=== PATIENT | female | born 1935 | race Caucasian/White ===

== ENCOUNTER 2016-02-07 21:35 | Inpatient (IN) | payer MEDICARE ==
[~2016-02-07] VITALS: Ht 167.6 cm; Wt 57.5 kg
[~2016-02-07 21:35] MED LIST: BAYER CHEWABLE81 MG PO; CATAPRES0.1 MG PO; CELEXA10 MG PO; CHLORTHALIDONE25 MG PO; COREG6.25 MG PO; FUROSEMIDE40 MG PO; LASIX20 MG PO; LIPITOR10 MG PO; LISINOPRIL10 MG PO; LOPRESSOR25 MG PO; METOPROLOL TART50 MG PO; NORVASC10 MG PO; NORVASC5 MG PO; OCUFLOX 0.3 % OP5 ML RIGHT EYE; PEPCID AC20 MG PO; PHOSLO667 MG PO; PLAVIX75 MG PO; PREDNISONE20 MG PO; PREDNISONE5 MG PO; PROTONIX40 MG PO; REFLUX MEDICATION PO; REQUIP0.25 MG PO; RESTORIL15 MG; TOPROL XL25 MG PO; VITAMIN D2000 UNIT PO; VITAMIN D5000 UNIT PO; XANAX0.25 MG PO; ZESTRIL10 MG PO; [UNRECOGNIZED DRUG - OTHER]
[2016-02-07 22:16] LABS: UDS - AMPHET NEGATIVE QUAL (NEGATIVE); UDS - BARB NEGATIVE QUAL (NEGATIVE); UDS - BENZO POSITIVE QUAL (NEGATIVE); UDS - COCAINE NEGATIVE QUAL (NEGATIVE); UDS - METH NEGATIVE QUAL (NEGATIVE); UDS - OPIATE NEGATIVE QUAL (NEGATIVE); UDS - PCP NEGATIVE QUAL (NEGATIVE); UDS - THC NEGATIVE QUAL (NEGATIVE)
[2016-02-07 22:18] LABS: APPEARANCE CLEAR (CLEAR); BILIRUBIN NEGATIVE (NEGATIVE); COLOR YELLOW (YELLOW); GLUCOSE 100 mg/dL (NEGATIVE); KETONE NEGATIVE (NEGATIVE); LEUKOCYTE ESTERASE NEGATIVE (NEGATIVE); NITRITE NEGATIVE (NEGATIVE); PROTEIN 3+ mg/dL (NEGATIVE); UROBILINOGEN NORMAL (NORMAL)
[2016-02-07 22:20] LABS: BACTERIA FEW /hpf (NONE SEEN); EPITHELIAL CELLS 0-5 /hpf (0-5); RED CELLS - URINE 0-5 /hpf (0-5); WHITE CELLS - URINE 0-5 /hpf (0-5)
[2016-02-07 22:36] LABS: BASOPHILS 0 % (0.0-2.0); EOSINOPHILS 0 % (0-7); HEMATOCRIT 40.4 % (36.0-48.0); HEMOGLOBIN 13.2 g/dL (12-16); IMMATURE GRANULOCYTES 0.2 % (0-5); LYMPHOCYTES 5.2 % (15-50); MCH 33.2 pg (26.0-34.0); MCHC 32.7 g/dL (31.0-37.0); MCV 101.8 fL (80.0-100.0); MEAN PLATELET VOLUME 9.8 fL (7.4-10.4); MONOCYTES 6.5 % (2-11); NEUTROPHILS 88.1 % (40-80); PLATELET COUNT 419 10x3/uL (130-400); RBC 3.97 10x6/uL (4.00-5.40); RDW 14.5 % (11.5-14.5); WBC 20.6 10x3/uL (4.8-10.8)
[2016-02-07 22:39] LABS: ALBUMIN 3.6 g/dL (3.4-5.0); ALKALINE PHOSPHATASE 83 U/L (46-116); ALT (SGPT) 25 U/L (10-68); BILIRUBIN - TOTAL 0.47 mg/dL (0.2-1.3); CALC OSMOLALITY 303 mosm/kg (275-300); CALCIUM 9.5 mg/dL (8.5-10.1); CHLORIDE - SERUM 102 mmol/L (98-107); CREATININE - SERUM 5.9 mg/dL (0.6-1.3); GLUCOSE 249 mg/dL (74-106); POTASSIUM - SERUM 4.4 mmol/L (3.5-5.1); PROTEIN - SERUM 7.7 g/dL (6.4-8.2); SODIUM 142 mmol/L (136-145); UREA NITROGEN 49 mg/dL (7-18); eGFR NON AFRICAN AMERICAN 7 mL/min (90-120)
[2016-02-07 22:56] LABS: CKMB 15.8 U/L (0.0-3.6)
[2016-02-07 22:57] LABS: CREATINE KINASE 827 UL (21-215)
[2016-02-07 22:58] LABS: TROPONIN-I 0.462 ng/mL (0.000-0.060)
[2016-02-08] VITALS (23 sets, daily range): BP systolic 130–191; BP diastolic 51–98; BMI 21.3
--- NOTE | 2016-02-08 02:10 | NUR ---
PT ARRIVED VIA BED AND ER STAFF. UNRESPONSIVE, UNABLE TO FOLLOW COMMANDS, AND ONLY ABLE TO MAKE INCOMPREHENSIBLE SOUNDS. OPENS EYES SPONTANEOUSLY. FACIAL SWELLING PRESENT. BRUISING TO LEFT ARM AND LEFT BACK/SIDE. SPO2 98 ON ROOM AIR. NSR ON MONITOR. CARTER INTACT. LEFT ARM FISTULA WITH BRUIT AND THRILL PRESENT. PT GIVEN PARTIAL BATH AND LINEN CHANGE. BED ALARM ON. ROOM VISIBLE FROM NURSES STATION. CPOC.
[2016-02-08] MEDS ORDERED: LASIX80 MG PO (02:14)
[2016-02-08] MEDS ORDERED: REQUIP0.25 MG PO (02:14)
[2016-02-08] MEDS ORDERED: ZOFRAN4 MG PO (02:15)
[2016-02-08] MEDS ORDERED: RENA-VITE TABL0.8 MG PO (02:15)
[2016-02-08] MEDS ORDERED: RESTORIL15 MG PO (02:16)
[2016-02-08] MEDS ORDERED: CELEXA10 MG PO (02:16)
[2016-02-08] MEDS ORDERED: XANAX0.25 MG PO (02:17)
[2016-02-08] MEDS ORDERED: PRINIVIL20 MG PO (02:17)
[2016-02-08] MEDS ORDERED: BACLOFEN20 M1 PO (02:17)
[2016-02-08 04:20] LABS: BASOPHILS 0.1 % (0.0-2.0); EOSINOPHILS 0 % (0-7); HEMATOCRIT 37.8 % (36.0-48.0); HEMOGLOBIN 12.5 g/dL (12-16); IMMATURE GRANULOCYTES 0.9 % (0-5); LYMPHOCYTES 4.4 % (15-50); MCH 33.1 pg (26.0-34.0); MCHC 33.1 g/dL (31.0-37.0); MEAN PLATELET VOLUME 10.8 fL (7.4-10.4); MONOCYTES 8.2 % (2-11); NEUTROPHILS 86.4 % (40-80); PLATELET COUNT 291 10x3/uL (130-400); RBC 3.78 10x6/uL (4.00-5.40); RDW 14.6 % (11.5-14.5)
[2016-02-08 04:29] LABS: ALBUMIN 3.3 g/dL (3.4-5.0); ANION GAP 19.8 mmol/L (8-16); BILIRUBIN - TOTAL 0.59 mg/dL (0.2-1.3); CALCIUM 9.2 mg/dL (8.5-10.1); CARBON DIOXIDE 22.1 mmol/L (21.0-32.0); CREATININE - SERUM 5.4 mg/dL (0.6-1.3); POTASSIUM - SERUM 4.9 mmol/L (3.5-5.1); PROTEIN - SERUM 6.6 g/dL (6.4-8.2)
--- NOTE | 2016-02-08 09:28 | NUR ---
PATIENT EYES WIDE OPEN, FEARFUL LOOK ON FACE. RESP DEEP AND REGULAR DOES GASP FOR BREATH AT TIMES. SKIN WARM AND DRY. DOSE NOT MAKE EYE CONTACT, DOES NOT OBEY COMMANDS. JERKING KIND OF MOVEMENT WITH MUSCLE TIGHTNESS IN EXTREMITITES. MOANS LOUDLY AT TIMES. RIGHT HAND IN FIST BEND LEFT LEG AND SEEMS TO MOVE LEFT SIDE MORE THAN RIGHT. DOES RESPOND TO PAIN IN ALL EXTREMITITES. IV RIGHT FOREARM WITHOUT REDNESS OR SWELLING INFUSING WITH D5LR AT 50 ML HOUR. CARTER PATENT DRAINING CLEAR YELLOW URINE. MONITOR SINUS RHYTHM. CAN TURN TO ST WHEN MOANING.NAPPING AT INTERVALS. SCD ON LOWER LEGS WORKING PROPERLY. FACE SWOLLEN AND LOWER EXTREMITIES EDEMA NOTED. BHASKAR larsen HERE. STATES NEW MEDS bACLOFEN STARTED THIS WEEK FOR TREMORS. LUNGS CLEAR BILATERLLY, ABD SOFT WITH BOWEL SOUNDS PRESENT X 4.
--- NOTE | 2016-02-08 09:45 | NUR ---
lABETALOL iv GIVEN FOR ELEVATED BLOOD PRESSURE. WHEN MOANING AND RESTLESS BLOOD PRESSURE UP TO 190'S.
[2016-02-08 09:51] LABS: HEMOGLOBIN A1C 5.6 % (4.8-6.0)
[2016-02-08 10:19] LABS: T4 THYROXIN - FREE 1.13 ng/dL (0.76-1.46); THYROID STIMULATING HORMONE 3.24 uIU/mL (0.36-3.74)
[2016-02-08 10:24] LABS: CKMB 19.6 U/L (0.0-3.6); CREATINE KINASE 997 UL (21-215); TROPONIN-I 2.048 ng/mL (0.000-0.060)
--- NOTE | 2016-02-08 11:40 | NUR ---
patient repositioned on left side. jerking of right shoulder. good cough while jerking eyes wide open but does make eye contact. no jerking in extremities. but extremities stiff at times. likes to keep left leg bent. does obey any commands. does rebend left leg when straighten out. when left alone jerking is much less. iv patent. morales draining pale yellow clear urine.
--- NOTE | 2016-02-08 14:12 | NUR ---
PATIENT WITH CONTINOUS JERKING AND MOANING CALLED Baylee larsen CALL hEIPLE ORDERS RECEIVED FOR A nEURO CONSULT. DR. BANUELOS NOTIFIED OF CONSULT
--- NOTE | 2016-02-08 15:55 | NUR ---
VERY RESTLESS, KICKING LEGS IN THE AIR, THRASHING BACK AND FORTH IN BED. DR. TORRE IS HERE. EMOTIONAL SUPPORT TO SONS. PILLOWS PLACED TO PAD SIDE RAILS IV AND CARTER CATH PATENT.
--- NOTE | 2016-02-08 18:45 | NUR ---
nG INSERTED AFTER CXR DONE WAS IN LUNG, REMOVED AND REINSERTED IN LEFT NARES PER Cameron Hernandez. CHEST X-RAY DONE CONFIRMED IN STOMACH. KLONOPIN GIVEN. MED EFFECTIVE. PATIENTIS RESTING QUIETLY AT THIS TIME. RESP DEEP AND REGULAR NO DISTRESS. NO RESTLESS NESS OR JERKING MOTION NOTED. ATTEMPTED 2ND IV FOR IV ANTIBIOTICS X 2 STICKS UNSUCCESSFUL.
--- NOTE | 2016-02-08 18:57 | NUR ---
Kimberly PATIENT SON NOTIFIED OF ng TUBE INSERTION AND EFFECTIVENESS OF kLONOPIN. INFORMED WAS RESTING WELL RIGHT NOW.
--- NOTE | 2016-02-08 19:28 | NUR ---
REPORT RECIEVED. ASSESSMENT COMPLETE PER FLOW SHEET. PT AWAKE DISORIENTED X4 DOES NOT RESPOND TO VERBAL CUES OR RETRACTS TO PAINFUL STIMULI, R PUPIL 4MM FIXED, L PUPIL 4MM BRISK. L ARM RESERVE R SUBCLAVIAN HEMOSPLIT NOTED DRSG CDI, R FOREARM PIV PATENT DRSG CDI, NON PURPOSEFUL MOVEMENT NOTED X4 EXTREMETIES. HEART S1S2 HR 98 NSR. BS HYPO ACTIVE X4. NGT TO R NARE PATENT TO LIS. RR 28 LABRED TO RA 99% RUL RML ARUN CLEAR BILAT LOWER LOBES DEMINISHED. BILAT SCDS ON NO SLIP SOCKS ON BED ALARM ON VSS WILL CONTINUE TO MONITOR.
--- NOTE | 2016-02-08 21:03 | NUR ---
LAB AT BEDSIDE, REPOSITIONED UP IN BED. NO NEW FINDINGS. NO VISITORS AT THIS TIME. [facility].
[2016-02-08 22:13] LABS: CKMB 25.3 U/L (0.0-3.6)
[2016-02-08 22:14] LABS: CREATINE KINASE 2074 UL (21-215); TROPONIN-I 3.112 ng/mL (0.000-0.060)
--- NOTE | 2016-02-08 23:28 | NUR ---
REASSESSMENT COMPLETE PER FLOW SHEET. VSS NO NEW CHANGES AT THIS TIME. WILL CONTINUE TO MONITOR.
[2016-02-09] VITALS (26 sets, daily range): BP systolic 80–182; BP diastolic 49–101; Ht 167.6 cm; Wt 57.5 kg
--- NOTE | 2016-02-09 01:33 | NUR ---
REPOSITIONED UP IN BED. PT SLEEPING AT THIS TIME. VSS. WILL CONTINUE TO MONITOR.
--- NOTE | 2016-02-09 02:16 | NUR ---
PT LEGS OOB REPOSITIONED BACK IN BED, PT NOW AWAKE NON PURPOSEFUL MOVEMENTS NOTED. WILL CONTINUE TO MONITOR.
--- NOTE | 2016-02-09 03:14 | NUR ---
REASSESSMENT COMPLETE PER FLOW SHEET. VSS. NO NEW CHANGES AT THIS TIME. WILL CONTINUE TO MONITOR.
--- NOTE | 2016-02-09 05:20 | NUR ---
PARTIAL LINEN CHANGE AND BB ADM. NO NEW CHANGES.
[2016-02-09 05:58] LABS: BILIRUBIN - TOTAL 0.64 mg/dL (0.2-1.3); CALCIUM 9.8 mg/dL (8.5-10.1); CARBON DIOXIDE 19.4 mmol/L (21.0-32.0); GENTAMICIN - TROUGH 9.9 ug/mL (0.5-2.0); POTASSIUM - SERUM 5.4 mmol/L (3.5-5.1); PROTEIN - SERUM 6.4 g/dL (6.4-8.2); VANCOMYCIN - TROUGH 21.6 ug/mL (10.0-20.0)
[2016-02-09 06:17] LABS: BASOPHILS 0.1 % (0.0-2.0); EOSINOPHILS 0 % (0-7); HEMATOCRIT 33.6 % (36.0-48.0); HEMOGLOBIN 10.8 g/dL (12-16); IMMATURE GRANULOCYTES 0.4 % (0-5); MCH 32.5 pg (26.0-34.0); MCHC 32.1 g/dL (31.0-37.0); MCV 101.2 fL (80.0-100.0); MEAN PLATELET VOLUME 10.3 fL (7.4-10.4); MONOCYTES 14.4 % (2-11); NEUTROPHILS 76.1 % (40-80); PLATELET COUNT 343 10x3/uL (130-400); RBC 3.32 10x6/uL (4.00-5.40); RDW 14.8 % (11.5-14.5); WBC 15.7 10x3/uL (4.8-10.8)
--- NOTE | 2016-02-09 08:26 | NUR ---
0800-RT ARM IV LEAKING. RESITE 20GA TO RT HAND X 2 STICKS. PT THRASHING AROUND IN BED. BED RAILS PADDED WELL. PT DOES NOT RESPOND WITH PURPOSE,VSS, AFEBRILE, PT IS NON VERBAL. LINENS CHANGED.
--- NOTE | 2016-02-09 12:42 | NUR ---
DR TORRE HERE, 400CC NSR BOLUS GIVEN WHILE ON HD AND HD PULL STOPPED PRIOR TO THAT. CALLED DR RICH AND REPORTED TO HIM. NO NEW ORDERS AT PRESENT.
--- NOTE | 2016-02-09 13:36 | NUR ---
1335- DR RICH HERE, METOPROLOL GIVEN ORDERED, HR 150 TO 180.
--- NOTE | 2016-02-09 16:02 | NUR ---
1400- HR UCAF CONTINUES. NEXTERONE BEGAN ORDERED 0.5MG/HR.
--- NOTE | 2016-02-09 16:04 | NUR ---
1600-PT HAS CONVERTED TO ST 115 ON CM.
--- NOTE | 2016-02-09 18:18 | NUR ---
PT'S SONS AT BEDSIDE. LINENS STRAIGHTENED AND PT DID TELL ME HER FIRST NAME. STILL WILL NOT FOLLOW COMMAND, CONTINUES TO HAVE RYTHMIC MOVEMENT OF SHOULDERS BUT NOT KICKING LEGS AT PRESENT.
--- NOTE | 2016-02-09 19:15 | NUR ---
ASSESSMENT COMPLETE. S1S2. RR SHALLOW; TACHYPNEA. RR CLEAR BILATERALLY IN UPPER LOBES; DIMINISHED BILATERALLY IN LOWER LOBES. PT THRASHING AROUND UPON ENTERING ROOM. BRUISING NOTED TO ALL EXTREMITIES. HEMOSPILT TO RIGHT SUBCLAVIAN. RESERVE LEFT ARM; FISTULA PRESENT. PT UNABLE TO SPEAK; ANSWERS SOME QUESTIONS BY KNODDING.
--- NOTE | 2016-02-09 23:20 | NUR ---
REASSESSMENT COMPLETE. NO CHANGES FROM PREVIOUS ASSESSMENT OTHER THAN PT ABLE TO ANSWER SOME QUESTIONS IN SENTENCE. IT TAKES A MIN FOR PT TO GET THE SENTENCE OUT BUT, SENTENCE IS APPROPRIATE TO QUESTION ASKED.
[2016-02-10] VITALS (24 sets, daily range): BP systolic 114–180; BP diastolic 60–88
--- NOTE | 2016-02-10 03:00 | NUR ---
REASSESSMENT COMPLETE. NO CHANGES FROM PREVIOUS ASSESSMENT.
[2016-02-10 04:14] LABS: BASOPHILS 0 % (0.0-2.0); EOSINOPHILS 0.1 % (0-7); HEMATOCRIT 32.4 % (36.0-48.0); HEMOGLOBIN 10.4 g/dL (12-16); IMMATURE GRANULOCYTES 0.2 % (0-5); LYMPHOCYTES 16.2 % (15-50); MCH 32.7 pg (26.0-34.0); MCHC 32.1 g/dL (31.0-37.0); MCV 101.9 fL (80.0-100.0); MEAN PLATELET VOLUME 9.7 fL (7.4-10.4); MONOCYTES 14.5 % (2-11); RBC 3.18 10x6/uL (4.00-5.40); RDW 14.5 % (11.5-14.5)
[2016-02-10 04:18] LABS: PLATELET COUNT 270 10x3/uL (130-400); WBC 8.9 10x3/uL (4.8-10.8)
--- NOTE | 2016-02-10 04:30 | NUR ---
PT INCREASED IN CONFUSION. PT THINKS MOVEMENTS IN THE DALE IS SOMEONE COMING TO GIVE PT DIALYSIS. REORIENTED. PT ARGUMENTATIVE. CONTINUES TO BELIEVE MOVEMENT OUTSIDE THE DOOR IS FOR DIALYSIS.
[2016-02-10 04:47] LABS: CALCIUM 8.7 mg/dL (8.5-10.1); GENTAMICIN - TROUGH 2.4 ug/mL (0.5-2.0)
[2016-02-10 04:50] LABS: ANION GAP 15.6 mmol/L (8-16); CREATININE - SERUM 3.6 mg/dL (0.6-1.3); POTASSIUM - SERUM 3.6 mmol/L (3.5-5.1)
--- NOTE | 2016-02-10 05:51 | NUR ---
PT REFUSED TO HAVE FSBS DONE.
--- NOTE | 2016-02-10 07:34 | NUR ---
PT CONFUSED, ANSWERS TO QUESTIONS ASKED, STATES NAME. VSS, AFEBRILE. NGT OUT, PT RESTRAINED BUT WAS STILL ABLE TO PULL NGT OUT.
--- NOTE | 2016-02-10 09:53 | NUR ---
899-HD STARTED. 944- DR PAUL HERE, FAMILY HERE. DR PAUL SPOKE WITH PT'S 2 SONS AT .
--- NOTE | 2016-02-10 10:46 | NUR ---
PATIENT IS UNABLE TO ANSWER QUESTIONS AT THIS TIME. I HAVE NOT SEEN ANY FAMILY HERE TO INTERVIEW. CM TO FOLLOW.
--- NOTE | 2016-02-10 12:10 | NUR ---
DIALYSIS TREATMENT INITIATED AT 0900 AND DISCONTINUED AT 1201. REMOVED 1 LITER OF FLUID. PROCESSED 66.7 LITERS OF BLOOD. PT CONTINUES TO BE RESTLESS. BP: 158/73, HR: 92, TEMP: 98.7, RESP: 20. NEENA RODRIGUEZ RN NOTIFIED AND UPDATED OF DIAYLSIS TREATMENT.
--- NOTE | 2016-02-10 12:11 | NUR ---
1210- HD COMPLETE, VSS, AFEBRILE, 1 L PULLED OFF DURING HD REPORTED BY HD NURSE. PT REINIER WELL.
--- NOTE | 2016-02-10 19:40 | NUR ---
REC'D TO CARE, WEIGHT COUNT OPERATOR PER FLOWSHEET. PT RESPONSIVE AND ANSWERING QUESTIONS APPROP. DIFFICULT TO UNDERSTAND SPEECH.. RESERVE L ARM - FISTULA WITH GOOD THRILL/BRUIT. R CHEST HEMASPLIT HL'D. DSG C/D/I. IVF TO R HAND - SEE FLOWSHEET. SKIN WITH LARGE BRUISE TO POST L ARM AND MULTIPLE BRUISES TO ALL EXTREMETIES, SIDE AND BACK. PT GIVEN WATER, NO DIFFICULTY SWALLOWING. VERY WEAK AND NEEDED ASSIST WITH CUP. REPOSITIONED UP IN BED WITH PILLOWS FOR COMFORT. ALARMS ON AND C/L IN REACH.
--- NOTE | 2016-02-10 21:12 | NUR ---
NO VISITORS AT THIS TIME, PT REPORTS ADEQUATE PAIN RELIEF, RESTING QUIETLY. C/L IN REACH.
--- NOTE | 2016-02-10 23:02 | NUR ---
PT C/O BACK PAIN. REPOSITIONED FOR COMFORT. ADMIN PO NORCO PER PRN ORDER.
[2016-02-11] VITALS (25 sets, daily range): BP systolic 122–160; BP diastolic 48–90
--- NOTE | 2016-02-11 01:20 | NUR ---
REPOSITIONED UP IN BED, NOW C/O L SHOULDER PAIN. L ARM ELEVATED ON PILLOW, VERY TENDER TO TOUCH. WILL ADMIN PRN ZOFRAN FOR C/O NAUSEA.
--- NOTE | 2016-02-11 03:06 | NUR ---
SHOULDER XRAY DONE. PO NORCO GIVEN PER PRN ORDER.
--- NOTE | 2016-02-11 04:05 | NUR ---
RESTING WITH EYES CLOSED. FLACC = 0
--- NOTE | 2016-02-11 05:09 | NUR ---
PT RESTING, REFUSES TURNING AT THIS TIME - STATES "I'M COMFORTABLE". VSS. NO SIGN OF DISTRESS.
--- NOTE | 2016-02-11 07:00 | NUR ---
REC'D REPORT AND RESUMED CARE, SLEEPING, AROUSABLE TO VERBAL STIMULI, LETHARGIC, FOLLOWS SOME COMMANDS, UNABLE TO PARTS COUNTER ASSOCIATE WITH FINGERS, O2 VIA RA, SAT 98%, RIGHT SC HEMOSPLIT SL, DRESSING CDI, DATED [id number], RIGHT HAND PIV WITH CORDARONE AT 0.5 MG/MIN, NSAT 30 CC/HR, CARTER TO GRAVITY WITH BLOODY DRAINAGE TO [id number], SCD'S B/L, C/O PAIN IN SHOULDER 05/17, REPOSITIONED FOR COMFORT, ASSESSMENT COMPLETE PER FLOWSHEET, NO OTHER NEEDS AT THIS TIME
[2016-02-11 08:04] LABS: BASOPHILS 0.2 % (0.0-2.0); EOSINOPHILS 2.9 % (0-7); HEMOGLOBIN 11.1 g/dL (12-16); IMMATURE GRANULOCYTES 0.2 % (0-5); LYMPHOCYTES 18.7 % (15-50); MCH 32.4 pg (26.0-34.0); MCHC 31.7 g/dL (31.0-37.0); MEAN PLATELET VOLUME 9.5 fL (7.4-10.4); MONOCYTES 21.7 % (2-11); NEUTROPHILS 56.3 % (40-80); PLATELET COUNT 256 10x3/uL (130-400); RBC 3.43 10x6/uL (4.00-5.40); RDW 14.2 % (11.5-14.5)
[2016-02-11 08:11] LABS: WBC 5.8 10x3/uL (4.8-10.8)
[2016-02-11 08:21] LABS: ALBUMIN 2.8 g/dL (3.4-5.0); ANION GAP 12.3 mmol/L (8-16); BILIRUBIN - TOTAL 0.5 mg/dL (0.2-1.3); CALCIUM 8.2 mg/dL (8.5-10.1); CARBON DIOXIDE 30.5 mmol/L (21.0-32.0); CREATININE - SERUM 3.4 mg/dL (0.6-1.3); POTASSIUM - SERUM 3.8 mmol/L (3.5-5.1); PROTEIN - SERUM 6.2 g/dL (6.4-8.2); VANCOMYCIN - TROUGH 8.4 ug/mL (10.0-20.0)
--- NOTE | 2016-02-11 08:45 | NUR ---
AM MEDS GIVEN WITHOUT DIFFICULTY
--- NOTE | 2016-02-11 08:50 | NUR ---
Is the patient Alert and Oriented? Yes 0 * How many steps to enter\exit or inside your home? 1 0 * PCP COURTNEY MCGREGOR 0 * Pharmacy [facility] 0 * Preadmission Environment Home Alone 0 * ADLs Independent 0 * Equipment None 0 * List name and contact numbers for known caregivers / representatives who currently or will assist patient after discharge: SON: JANETT [phone] SON: KENNY [phone] 0 * Community resources currently utilized None 0 * Please name any agencies selected above. DIALYSIS AT [facility] 0 * Additional services required to return to the preadmission environment? No 0 * Can the patient safely return to the preadmission environment? Yes 0 * Has this patient been hospitalized within the prior 30 days at any hospital? No PATIENT IS AWAKE AND ALERT. SHE STATES SHE LIVES ALONE. SHE STATES SHE HAS TWO SONS, JANETT AND KENNY. ONE OF THEM WILL BE AVAILABLE TO DRIVE HER HOME AT DISCHARGE. PATIENT STATES HER PCP IS DR. MCGREGOR. SHE GETS HER MEDS AT [facility]. SHE DENIES USE OF ANY EQUIPMENT. SHE DENIES EVER HAVING HOME HEALTH. PATIENT STATES SHE DOES DIALYSIS ON AT [facility] ON [address]. SHE TELLS ME THAT SHE DRIVES HERSERLF TO AND FROM HER DIALYSIS. PATIENT STATES THERE IS ONLY 1 STEP TO ENTER HER HOME. SHE REFUSES HH OR REHAB AT THIS TIME. SHE STATES SHE DOES NOT FEEL SHE NEEDS IT. CM TO FOLLOW.
--- NOTE | 2016-02-11 09:00 | NUR ---
SON AT [facility], STATUS UPDATED, VOICES NO NEEDS AT THIS TIME
--- NOTE | 2016-02-11 11:00 | NUR ---
NO ACUTE CHANGE FROM PREVIOUS ASSESSMENT, VSS, C/O PAIN IN SHOULDER, DENIES NEEDS FOR PAIN MEDS, BRUISING NOTED, REPOSITIONED FOR COMFORT
--- NOTE | 2016-02-11 11:04 | NUR ---
NUTRITION MONITORING & EVAL CHART REVIEWED. NURSING REPORTS PT WITH ~25 TO 35% INTAKE BREAKFAST. RENAL MECH SOFT DIET. WILL CONTINUE TO PROVIDE DIET, MONITOR PT PROGRESS. RD FOLLOWING
[2016-02-11 11:15] LABS: HEPATITIS C ANTIBODY <0.1 (0.0-0.9)
--- NOTE | 2016-02-11 11:56 | NUR ---
[facility] - Patient's OPHD clinic is [facility] on MWF @ 11:45. Medical records forwarded to home clinic for their records. [place] NAV[place].
--- NOTE | 2016-02-11 12:10 | NUR ---
LUNCH TRAY TO BEDSIDE, ASSIST WITH SET UP AD EATING,
--- NOTE | 2016-02-11 14:00 | NUR ---
REPOSITIONED TO LEFT SIDE WITH PILLOW PROPPED TO BACK AND HEELS FLOATED
--- NOTE | 2016-02-11 15:00 | NUR ---
BATHE AND LINEN CHANGE COMPLETED, TOLERATED WITHOUT DIFFICULTY, ASSESSMENT COMPLETED PER FLOWSHEET, VSS, C/O OF PAIN 4/10 TO LEFT SHOULDER, REPOSITIONED TO BACK B/L ARMS FLOATED TO PILLOWS, REFUSED TO PUTL ON SCD'S, EDUCATED ON BLOOD CLOTS, VERBALIZED UNDERSTANDING, NO OTHER NEEDS AT THIS TIME
--- NOTE | 2016-02-11 15:36 | NUR ---
DR PAUL HERE FOR EVAL NEW ORDER GIVEN TO CHANGE IVF TO KVO
--- NOTE | 2016-02-11 18:03 | NUR ---
DINNER TRAY TO BEDSIDE, ASSIST WITH SET UP AND EATING
--- NOTE | 2016-02-11 18:15 | NUR ---
SONS AT BEDSIDE STATUS UPDATED, VOICES NO NEEDS AT THIS TIME
--- NOTE | 2016-02-11 19:15 | NUR ---
ASSESSMENT COMPLETE. S1S2. RR CLEAR; EQUAL BILATERAL; NON LABORED. AAO. CARTER IN PLACE. RIGHT HAND PIV; PATENT. BRUISING NOTED B/L EXTREMITIES X4; FACIAL BRUISING. SWELLING IN EXTREMITIES X4; WITH IMPAIRED ROM IN UPPER EXTREMITIES. PERRLA.
--- NOTE | 2016-02-11 21:30 | NUR ---
PT AWAKE. REPOSITIONED FOR COMFORT. DENIES PAIN AND ANY FURTHER NEEDS AT THIS TIME. WILL CONTINUE TO MONITOR.
--- NOTE | 2016-02-11 23:00 | NUR ---
REASSESSMENT COMPELTE. NO CHANGES FROM PREVIOUS ASSESSMENT.
[2016-02-12] VITALS (25 sets, daily range): BP systolic 101–157; BP diastolic 50–104
--- NOTE | 2016-02-12 | NUR ---
PT C/O PAIN; GENERALIZED. PRN NORCO GIVEN PER ORDERS. SEE EMAR FOR DETAILS
--- NOTE | 2016-02-12 01:49 | NUR ---
PT RESTING; EYES CLOSED. NO DISTRESS NOTED. VSS. CALL LIGHT IN REACH. WILL CONTINUE TO MONITOR.
--- NOTE | 2016-02-12 03:00 | NUR ---
REASSESSMENT COMPELTE. NO CHANGES FROM PREVIOUS ASSESSMENT.
--- NOTE | 2016-02-12 04:08 | NUR ---
PT RESTING; EYES CLOSED. NO DISTRESS NOTED. CALL LIGHT IN REACH. WILL CONTINUE TO MONITOR.
--- NOTE | 2016-02-12 07:00 | NUR ---
REPORT RECIEVED, INITIAL ASSESSMENT COMPLETE, PLEASE SEE FLOW SHEETS FOR DETAILS. PT DENIES PAIN/NEEDS AT THIS TIME. REFUSED SCD'S. BED LOW AND LOCKED, CALL LIGHT IN REACH. DIALYSIS NURSE IN ROOM FOR HD. VSS AT THIS TIME, WILL CONTINUE TO MONITOR.
--- NOTE | 2016-02-12 09:00 | NUR ---
PT RECIEVING HD AT THIS TIME, VSS, DENIES PAIN/NEEDS, WILL CONTINUE TO MONITOR.
--- NOTE | 2016-02-12 10:06 | NUR ---
NUTRITION MONITORING & EVAL PT TOLERATING RENAL DIET, CURRENTLY UNDERGOING HD. WILL CONTINUE TO MONITOR PT PROGRESS. RD FOLLOWING
--- NOTE | 2016-02-12 11:13 | NUR ---
DIALYSIS TREATMENT INITIATED AT 0756 VIA RIGHT CHEST HEMISPLIT AND DISCONTINUED AT 1100. REMOVED 1500ML OF FLUID DUE TO HYPOTENSION MORE COULD NOT BE REMOVED. PROCESSED 66.5L OF BLOOD. POST VITALS: BP: 140/59, HR: 95, TEMP: 97.6, RESP: 18.
--- NOTE | 2016-02-12 11:15 | NUR ---
REASSESSMENT COMPLETE, PLEASE SEE FLOW SHEETS FOR DETAILS. COMPLAINS OF PAIN ALL OVER, DENIES ANY NEEDS. VSS AT THIS TIME AND JUST CAME OFF OF DIALYSIS. WILL CONTINUE TO MONITOR.
--- NOTE | 2016-02-12 13:00 | NUR ---
PT RESTING, DENIES PAIN/NEEDS AT THIS TIME. VSS, WILL CONTINUE TO MONITOR.
--- NOTE | 2016-02-12 14:29 | NUR ---
SPOKE WITH DR PAUL ABOUT PT MOVING TO FLOOR, HE SAID HE TOLD FARRAH YESTERDAY THAT SHE COULD MOVE TO FLOOR. WILL PUT IN ORDERS.
--- NOTE | 2016-02-12 15:00 | NUR ---
PT RESTING, VSS, BED LOW AND LOCKED, DENIES PAIN/NEEDS AT THIS TIME, CALL LIGHT IN REACH, WILL CONTINUE TO MONITOR.
--- NOTE | 2016-02-12 15:54 | NUR ---
DR PAUL WANTS CARDIOLOGY TO CHECK UP ON PT, SEE IF SHE CAN COME OFF THE CODARONE DRIP. WILL NOTIFY CARDIOLOGY,
--- NOTE | 2016-02-12 15:59 | NUR ---
SPOKE WITH DR RICH, HE ORDERED CODARONE 200MG DAILY PO, AND TO DC CODARONE DRIP.
--- NOTE | 2016-02-12 15:59 | NUR ---
DR PAUL WANT PT IV TO BE SALINE LOCKED.
--- NOTE | 2016-02-12 17:18 | NUR ---
PT SITTING UP IN BED EATING. DENIES ANY OTHER NEEDS AT THIS TIME. VSS, WILL CONTINUE TO MONITOR.
--- NOTE | 2016-02-12 19:30 | NUR ---
ASSESSMENT COMPLETE. S1S2. RR CLEAR; EQUAL; BILATERAL. DENIES PAIN OR DISCOMFORT. AAO. ANSWERS QUESTIONS APPROPRIATELY. MAKES POSITION CHANGES INDEPENDENTLY. LYN.
--- NOTE | 2016-02-12 21:30 | NUR ---
PT PULLING AT CARTER CATHETER. EDUCATED PT ABOUT RISKS OF PULLING ON CARTER CATH. BLOODY UOP IN CARTER COLLECTION BAG.
[2016-02-13] VITALS (8 sets, daily range): BP systolic 117–139; BP diastolic 55–94
--- NOTE | 2016-02-13 01:15 | NUR ---
PT RESTING; EYES CLOSED. NO DISTRESS NOTED. VSS. WILL CONTINUE TO MONITOR.
--- NOTE | 2016-02-13 08:01 | NUR ---
0700 PT ATTEMPTING TO SLEEP AT THIS TIME. AROUSES TO VOICE. ORIENTED X4. NORMAL SINUS ON MONITOR. UPPER LUNG LOBES AND RT MIDDLE LOBE CLEAR, DIMINISHED IN LOWER LOBES BILAT. BOWEL SOUNDS ACTIVE X4. RT HEMOSPLIT PRESENT AND CDI, LEFT FISTULA PRESENT WITH BRUIT AND THRILL NOTED. ABLE TO MOVE EXTREMITIES FREELY. VITAL SIGNS STABLE. TRANSFER ORDERS COMPLETED. WAITING FOR BED ASSIGNMENT.
--- NOTE | 2016-02-13 10:32 | NUR ---
0900 PT UP WITH PT AND ABLE TO WALK WITH MINIMAL ASSISTANCE. NO FURTHER CHANGES AT THIS TIME.
--- NOTE | 2016-02-13 11:19 | NUR ---
1100 NO CHANGES FROM PREVIOUS ASSESSMENT. WAITING FOR BED TO TRANSFER. WILL CONTINUE TO MONITOR
--- NOTE | 2016-02-13 13:09 | NUR ---
1300 PT RESTING PEACEFULLY AT THIS TIME WITH NO COMPLAINTS. WAITING FOR TRANSFER TO FLOOR. NO FURTHER CHANGES. VITAL SIGNS STABLE
--- NOTE | 2016-02-13 15:04 | NUR ---
1500 PT PIV CAME OUT, ONE ATTEMPT AT NEW IV AND PT STATES SHE WISHES TO REFUSE IV AT THIS TIME BECAUSE SHE IS SCARED OF NEEDLES. CALLED BHASKAR HYMAN AND SHE STATED THAT WE CAN D/C IV FLUIDS AND CHANGE IV LASIX TO PO. NO FURTHER CHANGES AT THIS TIME.
--- NOTE | 2016-02-13 17:00 | NUR ---
1700 PT SITTING UP EATING DINNER INDEPENDENTLY. NO FURTHER CHANGES AT THIS TIME. STILL WAITING ON BED FOR TRANSFER
--- NOTE | 2016-02-13 19:30 | NUR ---
ASSESSMENT COMPLETED AND NOTED. MET PT IN ROOM AND UNDERSTAND PT IS TOP BE TRANSFERED TO MED 2 WHEN THEY HAVE A BED VOICES SOME DISCOMFORT AND WILL GIVE PT SOMETHING FOR PAIN. WILL CONTININUE TO MONITOR PER ICU PROTOCOL
--- NOTE | 2016-02-13 20:15 | NUR ---
GAVE PT MEDICATION FOR PAIN AT THIS TIME. NO OTHER NEEDS AT THIS TIME. WILL MONITOR
--- NOTE | 2016-02-13 23:20 | NUR ---
NO CHANGES NOTED WITH THIS PT. NO BEDS AVAILABLE AT THIS TIME. WILL CONTINUE TO MONITOR PER ICU PROTOCOL
--- NOTE | 2016-02-14 00:32 | NUR ---
PT BLOOD SUGAR WAS 98 WITH NO INSULIN NEEDED. WILL CONTINUE TO MONITOR PER ICU PROTOCOL
--- NOTE | 2016-02-14 01:46 | NUR ---
NO CHANGES NOTED AT THIS TIME. PT APPEARS TO BE SLEEPING AT THIS TIME. WILL CONTINUE TO MONITOR
--- NOTE | 2016-02-14 03:21 | NUR ---
NO CHANGES NOTED AT THIS TIME. WILL CONTINUE TO MONITOR
--- NOTE | 2016-02-14 05:38 | NUR ---
PT CONTINUES TO REST AT THIS TIME. VOICES NO NEEDS. WILL CONTINUE TO MONITOR PER ICU PROTOCOL
[2016-02-14 07:00] VITALS: BP 143/59
--- NOTE | 2016-02-14 08:53 | NUR ---
RECIEVING DIALYSIS AT BEDSIDE AT THIS TIME. NO ACUTE DISTRESS NOTED. VSS. WILL CONTINUE PLAN OF CARE.
--- NOTE | 2016-02-14 10:03 | NUR ---
PT RECIEVING DIALYSIS AT THIS TIME. WATITING FOR DIALYSIS TO COMPLETE TO ADMIN SCHEDULED MEDS. PT SITTING UP IN BED AT THIS TIME. NO ACUTE DISTRESS NOTED. WILL CONTINUE PLAN OF CARE.
--- NOTE | 2016-02-14 11:15 | NUR ---
Mrs. Villela had bedside hemodialysis today via her right chest hemosplit from 0800 until 1100. Aveage blood flow was 400 mls/minute Net fluid removed wa 1343 mls. Post vital signs were: B/P: 101/53, HR: 102, Temp: 97.2, Resps:18.
--- NOTE | 2016-02-14 11:49 | NUR ---
MEDS TO POTENTIONALLY DECREASE BLOOD PRESSURE HELD AT THIS TIME FOR A BLOOD PRESSURE LEVEL OF 82/64, MAP 71 AT 1137. PT HAS JUST RECENTLY COMPLETED HD FOR THE DAY. BLOOD PRESSURE RECHECKED NOTED TO HAVE INCREASED AT 1147 AND NOTED AT 94/70, MAP 84. WILL CONTINUE TO OBSERVE.
[2016-02-14 12:37] VITALS: BP 98/72
--- NOTE | 2016-02-14 13:19 | NUR ---
SITTING UP IN BED RESTING AT THIS TIME. RESPIRATIONS AT STEADY AND UNLABORED RATE. AWAKENS EASILY WHEN STAFF STATES PT NAME. NO ACUTE DISTRESS NOTED. WILL CONTINUE PLAN OF CARE.
--- NOTE | 2016-02-14 15:15 | NUR ---
SMALL BOWEL MOVEMENT NOTED, LIQUID BROWN-YELLOW. ASHLEE CARE AND CARTER CARE PROVIDED VIA TOTAL ASSIST. NO ACUTE DISTRESS NOTED. BUTTPASTE APPLIED TO BUTTOCKS. WILL CONTINUE PLAN OF CARE.
[2016-02-14 15:35] VITALS: BP 101/58
--- NOTE | 2016-02-14 16:27 | NUR ---
AWAKE AT THIS TIME WATCHING TV. NO ACUTE DISTRESS NOTED. DENIES ANY NEEDS. WILL CONTINUE PLAN OF CARE.
--- NOTE | 2016-02-14 17:28 | NUR ---
Rehab Note- Rehab Prescreen Order received. Prescreen process has been started. Interviewed patient & is very interested in IRF stay. Will follow patient & see how she does in PT tomorrow since refusing therapy today due to feeling bad since HD. Will plan on admit to IRF tomorrow if able to participate in PT, Thank you for this referral! Antoinette Hernandez RN Clinical Liaison, [facility]
--- NOTE | 2016-02-14 17:50 | NUR ---
NOTED PT TO GO TO 2108. CALLED MED 2 TO GIVE REPORT. NURSE BUSY AT TIME. WILL ATTEMPT TO CALL REPORT AGAIN SHORTLY.
--- NOTE | 2016-02-14 18:31 | NUR ---
PT TRANSFERRED TO ROOM 2108. REPORT GIVEN TO DINAH. PT TRANSFERRED VIA WHEELCHAIR ACCOMPANIED BY HOSPITAL STAFF. ALL PERSONAL ITEMS TAKEN TO 2108 WITH PT. NO ACUTE DISTRESS NOTED. NO FURTHER ACTIONS.
--- NOTE | 2016-02-14 18:33 | NUR ---
RECIEVED TO ROOM 2109 FROM ICU VIA WHEELCHAIR. AWAKE AND ALERT ORINETED X 3 WILL MONITOR
[2016-02-14 20:30] VITALS: BP 103/54
--- NOTE | 2016-02-14 20:35 | NUR ---
ALERT/AWAKE WATCHING TV. ADMIN SCHED MED WITH SIPS OF WATER. REQUESTED TYLENOL FOR C/O "ACHING ALL OVER" NO OTHER NEEDS VOICED.
[2016-02-15 00:10] VITALS: BP 137/53
--- NOTE | 2016-02-15 02:27 | NUR ---
LYING ON RIGHT SIDE WITH EYES CLOSED. NO SIGNS/SYMPTOMS OF DISTRESS OR DISCOMFORT.
--- NOTE | 2016-02-15 02:37 | NUR ---
REQUESTED NORCO FOR C/O BACK PAIN LEVEL 6/10 SCALE, DESCRIBED ACHING/THROBBING.
[2016-02-15 04:20] VITALS: BP 119/60
[2016-02-15 07:35] VITALS: BP 97/59
[2016-02-15 08:00] VITALS: BP 111/43
[2016-02-15 09:12] LABS: BASOPHILS 0.4 % (0.0-2.0); EOSINOPHILS 4.3 % (0-7); HEMATOCRIT 35.4 % (36.0-48.0); HEMOGLOBIN 11.4 g/dL (12-16); LYMPHOCYTES 25.2 % (15-50); MCH 32.8 pg (26.0-34.0); MCHC 32.2 g/dL (31.0-37.0); MCV 101.7 fL (80.0-100.0); MEAN PLATELET VOLUME 10.3 fL (7.4-10.4); MONOCYTES 13.4 % (2-11); NEUTROPHILS 56.7 % (40-80); PLATELET COUNT 262 10x3/uL (130-400); RBC 3.48 10x6/uL (4.00-5.40); WBC 5.5 10x3/uL (4.8-10.8)
[2016-02-15 09:21] LABS: ANION GAP 14.5 mmol/L (8-16); CARBON DIOXIDE 31.1 mmol/L (21.0-32.0); POTASSIUM - SERUM 3.6 mmol/L (3.5-5.1)
[2016-02-15 11:20] VITALS: BP 114/59
--- NOTE | 2016-02-15 13:00 | NUR ---
ALERT AND ORIENTED X4. RETURN TO ROOM AFTER AMBULATING IN DALE WITH PHYSICAL THERAPY. GAIT STEADY. DC CARTER CATHETER. DEFLATE BULB 9mLs TIP INTACT. DENIES ITCHING OR BURNING. DENIES SOB. EDUCATE ON BLOOD PRESSURE MEDICATIONS AND WHEN TO TAKE THEM AND WHEN NOT TO. DENIES PAIN. CONTINUE PLAN OF CARE. BED LOCKED AND LOW. CALL LIGHT IN REACH. TWO SIDERAILS UP.
[2016-02-15 15:28] VITALS: BP 99/55
[2016-02-16] VITALS: BP 126/43
--- NOTE | 2016-02-16 00:37 | NUR ---
NURSE ROUNDS 19:30 - PT AWAKE, ALERT, ORIENTED, AMBULATING OUT OF BED USING A TRAY TABLE TO STABILIZE. PT IS REQUESTING A WALKER TO USE WHEN SHE NEEDS TO AMBULATE TO THE BATHROOM. [place] NURSE, EDUARDO LOZOYA, AND MYSELF LED PT BACK TO HER ROOM WITHOUT ANY DIFFICULTY, WHILE EDUARDO LOCATED A WALKER FOR PT TO USE AND PLACED IT AT BEDSIDE. PT DENIED ANY OTHER NEEDS. CONTINUE TO MONITOR CLOSELY. BED LOW, CALL LIGHT IN REACH, SIDE RAILS X 2, HOB 20 DEGREES.
--- NOTE | 2016-02-16 01:16 | NUR ---
PT EASILY ROUSABLE TO VERBAL STIMULI WHEN CHECKING FSBS. PT DENIED ANY NEEDS. CONTINUE TO MONITOR CLOSELY. BED LOW, CALL LIGHT IN REACH, SIDE RAILS X 2, HOB 10 DEGREES.
--- NOTE | 2016-02-16 06:21 | NUR ---
PT LYING IN BED, EYES CLOSED, RESPIRATIONS EVEN AND UNLABORED. PT IS EASILY ROUSABLE TO VERBAL STIMULI. DENIES ANY NEEDS. CONTINUE TO MONITOR CLOSELY. BED LOW, CALL LIGHT IN REACH, SIDE RAILS X 2, WALKER AT BEDSIDE.
[2016-02-16 08:45] VITALS: BP 146/65
[2016-02-16 13:14] VITALS: BP 145/73
--- NOTE | 2016-02-16 14:04 | NUR ---
Patient Name: AYDIN BOLIVAR Encounter No: [id number] : 1935 Primary Insurance: MEDICARE A & B Anticipated DC Date: 02-16-2016 Planned Disposition: Inpatient Rehab External Planned Provider: [facility] DCP follow-up note: CM SPOKE TO TESHA OF INPATIENT REHAB, INPATIENT REHAB WILL ACCEPT PT FOR REHAB. PT NOTIFIED AND IS IN AGREEMENT WITH INPATIENT REHAB AT [place] DISCUSSED WITH DR. MCGREGOR LONG SHE CAN GET DIALYSIS IN THE INPATIENT REHAB. CM EXPLAINED THAT DIALYSIS IS PROVIDED WHILE IN INPATIENT REHAB. PT IN AGREEMENT WITH DISCHARGE TODAY TO INPATIENT REHAB. IMPORTANT MESSAGE FROM [employer] PROVIDED AND EXPLAINED. CM PAGED DR. MCGREGOR TO INFORM OF ABOVE. [facility] INPATIENT REH[facility] TO CONTACT MED 2 NURSE WITH ROOM NUMBER WHEN READY TO ACCEPT PT AND NURSE REPORT. Osvaldo Noyola, CASE MANAGEMENT
[2016-02-16 17:04] VITALS: BP 126/55
[2016-02-16] MEDS ORDERED: LISINOPRIL5 MG PO (17:10)
[2016-02-16] MEDS ORDERED: CORDARONE200 MG PO (17:10)
--- NOTE | 2016-02-16 18:05 | NUR ---
ALERT AND ORIENTED X4. SITTING UP IN BED WAITING TO GO TO REHAB. REPORT CALLED TO SOY HERNANDEZ ON REHAB UNIT. DISCHARGE PAPERS SIGNED ON CHART. ESCORT TO ROOM 1111A VIA WHEELCHAIR. REMAINS FREE FROM INJURY.
--- NOTE | 2016-03-01 15:45 | EC ---
PATIENT:AYDIN BOLIVAR DATE OF SERVICE: 02/08/16 SEX: F MEDICAL RECORD: [id number] DATE OF : 37 LOCATION:D.M2 D.210 AGE OF PATIENT: 80 ADMISSION DATE: 02/08/16 REFERRING PHYSICIAN: INTERPRETING PHYSICIAN: ALANA FERGUSON M.D. ECHOCARDIOGRAM REPORT ECHO CHARGES 4 ECHO COMPLETE CLINICAL DIAGNOSIS: NON Q ID ASSESS EF ECHOCARDIOGRAPHIC MEASUREMENTS (adult normal given) AC root (d.<3.7cm) 3.0 LV Septum d (<1.2 cm> 1.5 Valve Excursion 1.6 LV Septum (systole) 1.6 Left Atria (s.<4.0cm> 4.0 LVPW d(<1.2cm) 1.7 RV (d.<2.3cm) 3.2 LVPW (sytole) 1.8 LV diastole(<5.6CM) 4.7 MV E-F(>70mm/sec) LV systole 3.2 LVOT Diameter 1.6 MV exc.(>10mm) 1.3 Est.ejection fraction (50-75%) Pericardial Effusion N DOPPLER: LVIT A 141 E 118 LA RVSP 28 LVOT 149 AOP1/2T Asc. Ao 181 RVOT 120 RA PA 158 AV Gradient Peak 13.11 AV Mean 6.5 AV Area 1.6 MV Gradient Peak 9.14 MV Mean 5.14 MV Area COMMENTS: Meal Grinder Tender: Lukas DUMONT Bellstand Attendant:2 Dr. Ferguson TAPE# PACS DATE OF SERVICE: 02/10/2016 INDICATION: Non-Q-wave myocardial infarction. REFERRING PHYSICIAN: Hermes Hickman MD DESCRIPTION: Left ventricle demonstrates left ventricular hypertrophy. No regional wall motion abnormalities are noted. Estimated ejection fraction is 55% to 60%. Mitral valve is structurally normal. There is mild regurgitation seen. Left atrium is mildly dilated. The aortic valve is trileaflet. There is ECHOCARDIOGRAM REPORT [id number] AYDIN BOLIVAR no stenosis or regurgitation seen. Right ventricle is mildly dilated. Tricuspid valve is normal. There is mild regurgitation seen. Right atrium is normal in size. There is no pericardial effusion noted. IMPRESSION: 1. Left ventricular hypertrophy with preserved ejection fraction of 55% to 60%. 2. Mild mitral regurgitation. 3. Mild tricuspid regurgitation. TRANSINT:[id number] Voice Confirmation ID: [id number] DOCUMENT ID: [id number] ALANA FERGUSON M.D. at 1545 CC: [id number] DICTATION DATE: 02/10/16 162 MELT SUPERINTENDANT: 02/11/16 0119 DIS IN 02/16/16 [facility] [address] [id number]
== END 2016-02-16 18:29 | DRG 917 ==
LOC: D.M2 → D.ER 21:35 → D.ICU 02-08 00:56 → D.M2 02-08 00:56
PROVIDERS: Emergency Medicine; Internal Medicine; ADMIT Internal Medicine Nephrology
DX: T42.8X1A Poisoning by antiparkinsonism drugs and other central muscle-tone depressants, accidental (unintentional), initial encounter (principal); G92 Toxic encephalopathy; N18.6 End stage renal disease; I21.4 Non-ST elevation (NSTEMI) myocardial infarction; I13.2 Hypertensive heart and chronic kidney disease with heart failure and with stage 5 chronic kidney disease, or end stage renal disease; E87.0 Hyperosmolality and hypernatremia; Z91.15 Patient's noncompliance with renal dialysis; I50.9 Heart failure, unspecified; Z99.2 Dependence on renal dialysis; Z86.73 Personal history of transient ischemic attack (TIA), and cerebral infarction without residual deficits; I25.10 Atherosclerotic heart disease of native coronary artery without angina pectoris; Z95.5 Presence of coronary angioplasty implant and graft; D63.1 Anemia in chronic kidney disease; R40.4 Transient alteration of awareness; E03.9 Hypothyroidism, unspecified; N05.1 Unspecified nephritic syndrome with focal and segmental glomerular lesions; R73.9 Hyperglycemia, unspecified; E87.5 Hyperkalemia; E83.51 Hypocalcemia; M25.512 Pain in left shoulder

== ENCOUNTER 2016-02-16 15:07 | Inpatient (IN) | payer MEDICARE ==
[~2016-02-16] VITALS: Ht 167.6 cm; Wt 57.8 kg
[~2016-02-16 15:07] MED LIST changes: +BACLOFEN20 M1 PO; +LASIX80 MG PO; +PRINIVIL20 MG PO; +RENA-VITE TABL0.8 MG PO; +RESTORIL15 MG PO; +ZOFRAN4 MG PO
[2016-02-16] MEDS ORDERED: LISINOPRIL5 MG PO (17:10)
[2016-02-16] MEDS ORDERED: CORDARONE200 MG PO (17:10)
--- NOTE | 2016-02-16 19:40 | NUR ---
INTRODUCED MYSELF TO PATIENT. VERIFIED HER ID FOR BEDBOARD ACCURACY.
[2016-02-16 19:41] VITALS: BP 126/67
--- NOTE | 2016-02-16 21:10 | NUR ---
ROUNDED ON PATIENT SHE COMPLAINED TO Anjana OWEN LPN THAT NO ONE HAD SEEN ER IN 4 HOURS. REMINDED HER THAT I HAD BRIEFLY VISITED WITH HER AROUND 1940 HRS. ALSO REMINDED HER I WAS INPUTTING HER MEDICATION ORDERS. PATIENT ARRIVED ON UNIT AT 1855 HRS PER DAY SHIFT REPORT.
--- NOTE | 2016-02-16 21:55 | NUR ---
HS MEDS GIVEN. PART OF ADMISSION ASSESSMENT COMPLETED. TOLD YANA DIAZ I WILL RETURN TO COMPLETE HER ASSESSMENT, HISRTORY AND HAVE HER SIGN HER ADMISSION DOCUMENTS WHEN I FINISH MED PASS TO MY REMAINING PATIENTS. SAID SHE UNDERSTANDS.
[2016-02-17 00:35] VITALS: BP 116/45
--- NOTE | 2016-02-17 00:36 | NUR ---
ADMISSION ASSESSMENT AND HISTORY COMPLETE. ADMISSION DOCUMENTS SIGNED. DENIES CURRENT NEEDS.
--- NOTE | 2016-02-17 02:00 | NUR ---
RESTING IN BED, EYES CLOSED. NO DISTRESS NOTED.
--- NOTE | 2016-02-17 04:00 | NUR ---
IN BED, EYES CLOSED. LYING ON LEFT SIDE. NO DISTRESS NOTED.
[2016-02-17 06:25] VITALS: BP 120/50
--- NOTE | 2016-02-17 06:35 | NUR ---
VSS. ASSISTED PATIENT UP TO BR WHERE SHE URINATED AN UNMEASURED AMOUNT WHILE ON COMMODE. NOTED SHE HAD A SCANT SOFT BM INCONTINENCE ON HER PINK BED PAD. OFFERED HER A PULL-UP BRIEF BUT SHE DECLINED. ASSISTED HER BACK TO BED AFTER ZEROING HER BEDSCALE. WEIGHT IS 130.0 LBS THIS MORNING.
[2016-02-17 06:55] LABS: BASOPHILS 0.6 % (0.0-2.0); EOSINOPHILS 4.6 % (0-7); HEMATOCRIT 30.5 % (36.0-48.0); IMMATURE GRANULOCYTES 0.2 % (0-5); LYMPHOCYTES 30.6 % (15-50); MCH 32.6 pg (26.0-34.0); MCHC 32.8 g/dL (31.0-37.0); MEAN PLATELET VOLUME 10.6 fL (7.4-10.4); MONOCYTES 19.8 % (2-11); NEUTROPHILS 44.2 % (40-80); PLATELET COUNT 265 10x3/uL (130-400); RBC 3.07 10x6/uL (4.00-5.40); RDW 13.6 % (11.5-14.5); WBC 5.2 10x3/uL (4.8-10.8)
[2016-02-17 07:05] LABS: ANION GAP 16.3 mmol/L (8-16); CALCIUM 8.5 mg/dL (8.5-10.1); CARBON DIOXIDE 26.6 mmol/L (21.0-32.0); POTASSIUM - SERUM 3.9 mmol/L (3.5-5.1)
[2016-02-17 07:06] LABS: CREATININE - SERUM 6.8 mg/dL (0.6-1.3)
[2016-02-17 07:07] LABS: MCV 99.3 fL (80.0-100.0)
--- NOTE | 2016-02-17 07:40 | NUR ---
AGREES TO ALLOW THIS NURSE TO BAG AND REMOVE HOME MEDS FROM ROOM AND GIVE TO FAMILY.HOME MEDS WRITTEN DOWN AND BAGED,PLACED IN BOTTOM DRAWER OF LOCKED MED CART UNTIL FAMILY ARRIVES.VERY ARGUMENTIVE AND CRITICAL OF FACILITY AND STAFF.STATES"I HAVE A PHD IN PSYCHOLOGY AND I KNOW A LITTLE BIT".IS ORIENTED.BED IN LOW POSITION,CL IN EASY REACH.
[2016-02-17 09:20] VITALS: BP 104/38
[2016-02-17 11:05] VITALS: Ht 167.6 cm; Wt 57.8 kg
--- NOTE | 2016-02-17 13:58 | NUR ---
Pt. is currently being moved into room 1116. She is stable and doing therapy this afternoon. All of her personal belongings are being transferred to the new room.
--- NOTE | 2016-02-17 19:50 | NUR ---
INTRODUCED SELF TO PT. PT STATES SHE IS NOT VERY HAPPY HERE AND WOULD LIKE TO GO HOME. PT STATES SHE HAS TALKED TO SON AND HE IS COMING TO S3B MULTI SENSOR OPERATOR HER MEDS. AFTER TALKING WITH PT SHE HAS CALMED DOWN AND AGREEABLE TO STAYING. WCTM. BED LOW. CL IN REACH.
[2016-02-17 20:22] VITALS: BP 127/58
--- NOTE | 2016-02-17 21:45 | NUR ---
PT TOOK HS MEDS WITHOUT DIFFICULYT. PT STATES NO NEEDS AT THIS TIME. BED LOW. CL IN REACH. WCTM.
--- NOTE | 2016-02-17 23:09 | NUR ---
PT RESTING, EYES CLOSED. BED LOW. CLIN REACH. WCTM.
[2016-02-18 00:18] VITALS: BP 117/41
--- NOTE | 2016-02-18 01:44 | NUR ---
PT RESTING, EYES CLOSED. BED LOW. CL IN REACH. WCTM.
--- NOTE | 2016-02-18 03:52 | NUR ---
PT RESTING, EYES CLOSED. BED LOW. CL IN REACH. WCTM.
[2016-02-18 05:41] VITALS: BP 129/50
--- NOTE | 2016-02-18 06:21 | NUR ---
PT AM VS AND DAILY WEIGHT TAKEN. PT BEGAN TALKING ABOUT HER FAMILY AND HOW THEY HADNT BEEN TO SEE HER. PT STATED SHE DOESN'T LIKE BEING HERE AND THIS IS THE LOWEST SHE HAS EVER BEEN AND SHE WOULD JUST LIKE TO TAKE SOME PILLS, GO TO SLEEP AND NEVER WAKE UP. MORTGAGE LOAN FUNDER NOTIFIED OF SITUATION. I FOLLOWED INSTRUCTIONS TO SEE IF PT WAS SERIOUS. AFTER TALKING WITH PATIENT SHE STATED THAT SHE WAS "TOO CHICKEN TO DO ANYTHING" AND THAT SHE "WOULD DO DIALYSIS AND THERAPY TODAY BC SHE WAS LOOKING FORWARD TO SEEING THOSE ABBY FACES." PT PROMISED ME SHE WOULDN'T DO ANYTHING TO HURT HERSELF. AFTER I SEARCHED PT'S ROOM I CAME ACROSS SOME HOME MEDICATIONS AND THEY HAVE BEEN LOCKED UP WITH PREVIOUS HOME MEDICATIONS TO BE TAKEN HOME BY FAMILY. WILL NOTIFY ONCOMING NURSE TO LET DR BROWN KNOW.
--- NOTE | 2016-02-18 07:45 | NUR ---
SLEEPING IN BED WITH LIGHTS OFF.
--- NOTE | 2016-02-18 09:15 | NUR ---
PT COMPLAINING OF NAUSEA WILL GIVE ZOFRAN ORDERED
[2016-02-18 12:30] VITALS: BP 170/71
--- NOTE | 2016-02-18 15:12 | NUR ---
PT RESTING IN BED WITH EYES OPEN CALL LIGHT IN REACH NO PROBLEMS WILL MONITER
--- NOTE | 2016-02-18 15:22 | NUR ---
ASSISTED PT TO BATHROOM PT VOIDED CLEAR YELLOW URINE NO PROBLEMS WILL MONITER
--- NOTE | 2016-02-18 16:50 | NUR ---
CARE TEAM MEETING: PATIENT TENATIVE DISCHARGE DATE IS 02/27/16. HD DAYS ARE M-W- @ 11:45 AT [facility]. WILL CONTINUE TO FOLLOW WITH PATIENT UNTIL DISCHARGED
[2016-02-18 18:44] VITALS: BP 128/60
[2016-02-18 20:14] VITALS: BP 135/61
[2016-02-18 20:42] LABS: BASOPHILS 0.2 % (0.0-2.0); EOSINOPHILS 3.1 % (0-7); HEMATOCRIT 29.4 % (36.0-48.0); HEMOGLOBIN 9.8 g/dL (12-16); IMMATURE GRANULOCYTES 0.4 % (0-5); LYMPHOCYTES 24.4 % (15-50); MCH 32.3 pg (26.0-34.0); MCHC 33.3 g/dL (31.0-37.0); MEAN PLATELET VOLUME 10.2 fL (7.4-10.4); MONOCYTES 17.4 % (2-11); NEUTROPHILS 54.5 % (40-80); RBC 3.03 10x6/uL (4.00-5.40); RDW 13.5 % (11.5-14.5); WBC 5.4 10x3/uL (4.8-10.8)
--- NOTE | 2016-02-18 20:55 | NUR ---
PT TAKEN TO DIALYSIS VIA WHEELCHAIR. ALERT ORIENTED CONVERSANT. DENIES NEEDS. NO ACUTE DISTRESS NOTED. PT REQUESTED THAT PERSONAL POSSESIONS BE SECURED. ITEMS PLACED IN BELONGING BAG AND SECURED WITH BLUE TOURNIQUIT.
[2016-02-18 21:03] LABS: PHOSPHOROUS 4.3 mg/dL (2.5-4.9)
[2016-02-18 21:07] LABS: PLATELET COUNT 320 10x3/uL (130-400)
[2016-02-18 21:11] LABS: CALCIUM 8.6 mg/dL (8.5-10.1); POTASSIUM - SERUM 3.7 mmol/L (3.5-5.1)
[2016-02-18 21:14] LABS: CARBON DIOXIDE 13.7 mmol/L (21.0-32.0); CREATININE - SERUM 0.8 mg/dL (0.6-1.3)
--- NOTE | 2016-02-18 21:15 | NUR ---
CALLED BY RHIANNON MINOR, STATING THAT PT WAS FEELING SICK AND REQUESTING ZOFRAN, AND A BLANKET. INFORMED THAT PT ALSO HAD DRASTIC DROP IN BP, WAS NOT HOWEVER INFORMED WHAT THE BP WAS.
--- NOTE | 2016-02-18 21:49 | NUR ---
CALLED AGAIN BY MILY, DIALYSIS, AND WAS INFORMED THAT PT NOW WAS COMPLAINING OF CHEST PAIN AND A HEADACHE. INFORMED THAT DIALYSIS WAS STOPPED AND THAT PT WAS READY FOR MODEL DRESSER.
--- NOTE | 2016-02-18 22:00 | NUR ---
RETRIEVED PT FROM DIALYSIS. PT NOW UNABLE TO TRANSFER OR STAND INDIPENTENETLY. SHAKING PROFUSELY, COMPLAINTS OF CHILLS AND HOT FLASHES. STATES THAT SHE WANTS TO GO HOME.
--- NOTE | 2016-02-18 23:36 | NUR ---
INFORMED THAT PT HAS GOTTEN HERSELF OUT OF BED AND INTO HER WHEELCHAIR AND GONE INTO DAY ROOM.
--- NOTE | 2016-02-18 23:47 | NUR ---
PT IN HALWAY DEMANDING PAIN MEDICATION, STATING THAT IF SHE DIDNT GET ANYTHING FOR PAIN THAT SHE WOULD LEAVE. EXPLAINED THAT PT DID NOT HAVE ANYTHING ORDERED. PT ALSO DOES NOT SHOW PAIN MEDICATIONS ON HOME MED REC. CALLED [facility]. OBTAINED ORDER FOR NORCO 5/325 X2 TABLETS Q4HPRN.
--- NOTE | 2016-02-19 | NUR ---
ADMINISTERED NORCO5/325 X2 PER NEW ORDER. ASKED PT WHY SHE PREVIOUSLY WENT TO DAY ROOM. PT STATED THAT SHE REMEMBERED THERE WAS AN EXIT THERE AND WAS TRYING TO LEAVE THROUGH IT.
[2016-02-19 00:03] VITALS: BP 151/62
--- NOTE | 2016-02-19 04:40 | NUR ---
RESTING IN BED, EYES CLOSED. NO DISTRESS NOTED.
[2016-02-19 06:25] VITALS: BP 115/53
--- NOTE | 2016-02-19 07:04 | NUR ---
RESTING QUIETLY IN BED. CALL LIGHT IN REACH
--- NOTE | 2016-02-19 08:15 | NUR ---
PT RESTING IN BED WITH EYES OPEN CALL LIGHT IN REACH NO PROBLEMS WILL MONITER
--- NOTE | 2016-02-19 14:19 | NUR ---
PT UP IN THERAPY GYM WITH PT TOLERATING WELL WILL MONITER
[2016-02-19 15:07] VITALS: BP 133/75
[2016-02-19 15:11] VITALS: BP 125/77
--- NOTE | 2016-02-19 19:50 | NUR ---
PT. IN BED WITH HOB UP FOR COMFORT. ASSESSMENT COMPLETED. PT. DIALOGED ABOUT ALL OF HER ISSUES WITH HER STOMACH AND HIP PAIN AND WANTS WHATEVER SHE HAD LAST NIGHT FOR PAIN TONIGHT. CALL LIGHT WITHIN REACH.
[2016-02-19 22:54] VITALS: BP 144/62
[2016-02-20 01:27] VITALS: BP 146/60
--- NOTE | 2016-02-20 01:31 | NUR ---
PT. IN BED LYING ON HER LEFT SIDE WITH EYES CLOSED AND RESP. EVEN. CALL LIGHT WITHIN REACH.
[2016-02-20 06:16] VITALS: BP 138/60
--- NOTE | 2016-02-20 06:25 | NUR ---
PT. HAD AN UNEVENTUAL NIGHT. PT. HAD RESTLESS LEGS DURING THE NIGHT WITH I WAS MAKING ROUNDS BUT SHE DIDN'T WAKE UP AND REQUEST ANYTHING. PT. REPORTS THIS MORNING THAT SHE "GOT UP TO THE BATHROOM(URINATE) AT LEAST EVERY OTHER HOUR." CALL LIGHT WITHIN REACH.
--- NOTE | 2016-02-20 07:45 | NUR ---
AWAKE,RESTING QUIETLY IN BED.DENIES NEEDS.ASSESSMENT COMPLETED.NO SIGNS OF ACUTE DISTRESS.CL IN EASY REACH,BED IN LOW POSITION.
--- NOTE | 2016-02-20 11:14 | RHP ---
PATIENT: AYDIN BOLIVAR MEDICAL RECORD: [id number] ACCOUNT: [id number] LOCATION:[facility]1116 : 36 ADMISSION DATE: 02/16/16 REHABILITATION HISTORY AND PHYSICAL EXAMINATION POST ADMISSION PHYSICIAN EXAMINATION Post-admission Physical Exam and History and Physical DATE OF ADMISSION TO REHAB: 02/16/2016 ADMITTING DIAGNOSES: Toxic encephalopathy, end-stage renal disease on dialysis and focal segmental glomerulosclerosis. HISTORY OF PRESENT ILLNESS: The patient is a 80-year-old female patient admitted to inpatient rehab for encephalopathy. She has got a history of end-stage renal disease, has had a workup by Dr. Emery in the past, she was seen in hemodialysis on February 05 with a tremor in her left arm. She also has been seen by her PCP and put on Baclofen 20 mg t.i.d. She was told by the nurse practitioner that she only needed to take half of one twice a day, but it was recommended not to take any at all. She was found on February 06 on the floor at home, incontinent of stool and urine, moaning. She was admitted to ICU. Her white blood cell count was 20,000. The patient had mental status had cleared up somewhat, but she still continued to have weakness with ambulation. She gets lightheaded and dizzy. She states that the doctor is going to do some medication changes, and discontinued and decrease some of her blood pressure medicines. She is doing better now, but is not able to return home without some inpatient physical therapy. COMORBIDITIES: Include hypertension, hyperglycemia, hypothyroidism, altered level of consciousness, coronary artery disease, hyperlipidemia, congestive heart failure, non-Q-wave myocardial infarction, atrial fibrillation, leukocytosis, hypocalcemia and anemia of chronic disease and history of cerebrovascular accident in the past. PAST MEDICAL HISTORY: Significant for cerebrovascular accident, end-stage renal disease focal segmental glomerulosclerosis, restless leg syndrome, hypothyroidism, hypertension, congestive heart failure, myocardial infarction in the past with stent placement, pneumonia, and anemia of chronic disease. PAST SURGICAL HISTORY: Includes appendectomy, cardiac catheterization with stent placement and left basilic, cephalic, aVF. ALLERGIES: She is allergic to no meds. CURRENT MEDICATIONS: Include Zofran 4 mg q.8 hours p.r.n., Lasix 80 mg daily. She is on folic acid daily, amiodarone 200 mg daily, and lisinopril 5 mg at bedtime. HABITS: No alcohol or tobacco use. FAMILY HISTORY: Noncontributory. SOCIAL HISTORY: The patient hopes to return back home. She lives here in [place] by herself. HISTORY AND PHYSICAL [id number] AYDIN BOLIVAR REVIEW OF SYSTEMS: GENERAL: Does complain of weakness and fatigue. HEENT: Denies cold, cough, or congestion. CARDIOVASCULAR: Denies chest pain. PHYSICAL EXAMINATION: VITAL SIGNS: Stable, afebrile. GENERAL: Elderly female in no distress upon exam. HEENT: Normocephalic, atraumatic. Mucosa is moist. NECK: Supple. No lymphadenopathy. LUNGS: Clear at this time. HEART: Irregular rate and rhythm. ABDOMEN: Benign. EXTREMITIES: No clubbing, cyanosis or edema. NEUROLOGIC: Slow to mentate, but intact. LABORATORY DATA: Her white count was 5.2, H&H of 10 and 31 and platelet count is 265. Sodium 137, potassium 3.9, BUN and creatinine of 67 and 6.8 and blood sugar is noted to be 95. ASSESSMENT: This is a 80-year-old female patient, who is admitted to rehab with a working diagnosis of a toxic encephalopathy, end-stage renal disease on dialysis and focal segmental glomerulosclerosis. The patient has potential to make improvement. We instituted the following multidisciplinary therapies including to, but not limited to physical, occupational, respiratory, speech, nutritional services, prosthetics and orthotics. Given her complex condition and risk for more complications, rehabilitation services cannot be provided at a low level of care such as a [facility] facility. PLAN: 1. Admit to [facility] rehab for intensive inpatient therapy to include the following disciplines: A. Physical therapy to improve gait, all transfer skills and bed mobility to a modified independent level. B. Occupational therapy to improve activities of daily living to a modified independent level. C. Case management to assist with discharge planning and placement options. D. Nutrition to assist with nutritional needs. E. Rehabilitation nursing to assist in monitoring the patient's underlying medical conditions and to assist with any type of bowel or bladder management. 2. The patient's current medications and medical care will be continued. 3. The patient will be placed on standard fall precautions. 4. The patient's estimated length of stay is approximately 7-10 days. 5. Discuss this patient during care team staff meeting this week. TRANSINT:[id number] Voice Confirmation ID: [id number] DOCUMENT ID: [id number] HISTORY AND PHYSICAL [id number] AYDIN BOLIVAR SCOTT MD at 1114 CC: [id number] DICTATION DATE: 02/17/16 1020 SUPERVISOR HEAVY EQUIPMENT: 02/17/16 1125 ADM IN [id number] [place] [address]
--- NOTE | 2016-02-20 12:47 | NUR ---
Nutrition Follow Up: Pt reported that she has had N/V the past several days but this seems to be resolved. She said that her appetite is fair; stated that food tastes different to her now. Pt requested that Nepro no longer be sent as it is taste too sweet. Diet: Renal Mech Soft; Nepro BID PO Intake: 31% (9 meal avg) +BM 02/17/16 Meds: Zofran, Lasix Labs noted Pt with poor po intake at this time. Rec continue current diet. Pt may benefit from an appetite stimulant. RD following.
--- NOTE | 2016-02-20 16:18 | NUR ---
HEMODIALYSIS STOPPED AT 2HRS PER PATIENT'S REQUEST. SHE VISIBLY STARTED SHAKING AND STATED THAT THIS IS WHAT HAPPENS BEFORE I PASS OUT. I LET HER STAY ON THE MACHINE FOR 3-4 MINUTES WITH UF TURNED OFF, AND PATIENT REQUESTED TO COME OFF STILL AT THIS TIME. BP CHECK DURING THIS TIME WAS WNL. BLOOD RETURNED, LINES FLUSHED, AND HEPARIN DWELLING.
--- NOTE | 2016-02-20 16:30 | NUR ---
RETURNED TO ROOM FROM DIALYSIS.TREMBLING OF WHOLE BODY OBSERVED,STATES " IM OK,I DO THIS SHAKING AND I DON'T KNOW WHY."BP 152/69,P85,RESP 18,SAT 96% ON RA.DENIES NEEDS.CL IN EASY REACH,BED IN LOW POSITION.SITTING ON SIDE OF BED.
[2016-02-20 16:46] LABS: ALBUMIN 2.8 g/dL (3.4-5.0); ANION GAP 12.9 mmol/L (8-16); BILIRUBIN - TOTAL 0.4 mg/dL (0.2-1.3); CARBON DIOXIDE 32.4 mmol/L (21.0-32.0); PHOSPHOROUS 2.4 mg/dL (2.5-4.9); POTASSIUM - SERUM 3.3 mmol/L (3.5-5.1); PROTEIN - SERUM 6.1 g/dL (6.4-8.2)
[2016-02-20 16:52] LABS: HEMATOCRIT 29.7 % (36.0-48.0); HEMOGLOBIN 9.5 g/dL (12-16); MCH 32.4 pg (26.0-34.0); MEAN PLATELET VOLUME 10.4 fL (7.4-10.4); PLATELET COUNT 373 10x3/uL (130-400); RBC 2.93 10x6/uL (4.00-5.40); RDW 13.4 % (11.5-14.5); WBC 5.6 10x3/uL (4.8-10.8)
[2016-02-20 16:53] LABS: MCV 101.4 fL (80.0-100.0)
[2016-02-20 17:39] LABS: LYMPHOCYTES 38 % (15-50); MONOCYTES 3 % (2-11); NEUTROPHILS 59 % (40-80)
[2016-02-20 17:40] LABS: PLATELET ESTIMATE NORMAL
[2016-02-20 18:24] VITALS: BP 158/65
--- NOTE | 2016-02-20 19:45 | NUR ---
PT RESTING, WATCHING TV, DENIES NEEDS AT THIS TIME. BED LOW. CLIN REACH.
[2016-02-20 21:37] VITALS: BP 146/64
--- NOTE | 2016-02-20 22:40 | NUR ---
PT TOOK HS MEDS WITHOUT DIFFICULTY. WCTM. BED LOW. CL IN [facility].
--- NOTE | 2016-02-21 02:00 | NUR ---
PT REQ AND REC'D PRN ZOFRAN FOR NAUSEA. WCTM. BED LOW. CL IN REACH.
--- NOTE | 2016-02-21 04:08 | NUR ---
PT RESTING, EYES CLSOED. BED LOW. CL IN REACH.
[2016-02-21 05:49] VITALS: BP 111/57
[2016-02-21 07:00] VITALS: BP 144/69
--- NOTE | 2016-02-21 08:00 | NUR ---
RESTING QUIETLY IN BED. CALL LIGHT IN REACH.
[2016-02-21 19:30] VITALS: BP 147/63
--- NOTE | 2016-02-21 19:35 | NUR ---
PT RESTING IN BED WATCHING TV. PT DENIES NEEDS AT THIS TIME. BED LOW. CL IN REACH.
--- NOTE | 2016-02-21 20:35 | NUR ---
PT HS MEDS GIVEN, DENIES NEEDS AT THIS TIME. FAMILY AT BEDSIDE. WCTM. BED LOW. CL IN REACH.
--- NOTE | 2016-02-21 22:42 | NUR ---
PT RESTING, EYES CLOSED. BED LOW. CL IN REACH. WCTM.
--- NOTE | 2016-02-21 23:30 | NUR ---
PT WAS YELLING OUT FOR A NURSE SAYING SHE HAD TO "GET OUT OF HERE." PT STATED HER HIPS AND LEGS WERE IN A LOT OF PAIN. PT REQ AND REC'D PRN PAIN MEDICATION AT THIS TIME. WCTM. BED LOW. CL IN REACH.
[2016-02-22 00:10] VITALS: BP 175/76
--- NOTE | 2016-02-22 03:00 | NUR ---
PT RESTING, EYES CLOSED. BED LOW. CLIN REACH.
[2016-02-22 05:58] VITALS: BP 149/76
--- NOTE | 2016-02-22 06:02 | NUR ---
PT AM MEDS GIVEN. VS AND DAILY WT TAKEN. PT DENEIS NEEDS AT THIS TIME.
[2016-02-22 07:00] VITALS: BP 165/64
--- NOTE | 2016-02-22 08:15 | NUR ---
PT COMPLAINING OF SHORTNESS OF BREATH 02 SAT TAKEN IT WAS 97 ON 2 LITERS O2
--- NOTE | 2016-02-22 09:00 | NUR ---
PT COMPLAINING THAT SHE JUST DONT FEEL RIGHT WANTS DR MCGREGOR CALLED WANTS DR BROWN TO DISCHARGE HER HOME WITH SON SO SHE CAN GET NEW DIALYSIS ACESS DR MCGREGOR CALLED NEW ORDERS WILL CARRY OUT ORDERED
[2016-02-22 10:50] LABS: BASOPHILS 0.4 % (0.0-2.0); EOSINOPHILS 1.5 % (0-7); HEMATOCRIT 30.9 % (36.0-48.0); HEMOGLOBIN 9.8 g/dL (12-16); LYMPHOCYTES 29.4 % (15-50); MCH 32.5 pg (26.0-34.0); MCHC 31.7 g/dL (31.0-37.0); MCV 102.3 fL (80.0-100.0); MEAN PLATELET VOLUME 9.6 fL (7.4-10.4); MONOCYTES 24.5 % (2-11); NEUTROPHILS 44.2 % (40-80); PLATELET COUNT 368 10x3/uL (130-400); RBC 3.02 10x6/uL (4.00-5.40); RDW 13.9 % (11.5-14.5); WBC 4.7 10x3/uL (4.8-10.8)
[2016-02-22 11:16] LABS: CALC OSMOLALITY 290 mosm/kg (275-300); CALCIUM 9.4 mg/dL (8.5-10.1); CARBON DIOXIDE 29.5 mmol/L (21.0-32.0); CHLORIDE - SERUM 104 mmol/L (98-107); CKMB 1.2 U/L (0.0-3.6); CREATINE KINASE 32 UL (21-215); CREATININE - SERUM 5.9 mg/dL (0.6-1.3); GLUCOSE 96 mg/dL (74-106); SODIUM 143 mmol/L (136-145); TROPONIN-I 0.027 ng/mL (0.000-0.060); UREA NITROGEN 30 mg/dL (7-18)
[2016-02-22 11:17] LABS: POTASSIUM - SERUM 4.1 mmol/L (3.5-5.1); eGFR NON AFRICAN AMERICAN 7 mL/min (90-120)
--- NOTE | 2016-02-22 13:50 | NUR ---
Pt is in stable condition. No signs of any discomfort or distress. Pt. is visiting with someone in her room at present time. No voiced complaints from pt. Will continue to monitor and offer assist with adl's.
--- NOTE | 2016-02-22 17:48 | NUR ---
PT IN BED WITH EYES OPEN CALL LIGHT IN REACH NO PROBLEMS WILL MONITER
[2016-02-22 18:21] VITALS: BP 169/75
--- NOTE | 2016-02-22 20:15 | NUR ---
PT IS RESTING IN BED WITH EYES OPEN. ALERT AND ORIENTED X 4. DENIES PAIN AT THIS TIME, BUT STATES SHE IS STARTING TO FEEL ANXIOUS, AND THINKS SHE WILL NEED A ANXIETY PILL WITH HER NIGHTTIME PILLS. PT IS VERY TALKATIVE. VSS. 02 IS ON @ 2LPM PER NC. RIGHT CHEST HEMISPLIT CATH NOTED. LEFT ARM FISTULA IS IMMATURE. SR'S ARE UP X 2 IN BED. CALL LIGHT AND BEDSIDE TABLE ARE WITHIN EASY REACH.
--- NOTE | 2016-02-22 22:00 | NUR ---
PT RESTING IN BED WATCHING TV. NO NEEDS VOICED.
[2016-02-22 22:05] VITALS: BP 143/70
[2016-02-22 23:39] VITALS: BP 135/59
--- NOTE | 2016-02-23 01:00 | NUR ---
PT RESTING QUIETLY IN BED WITH EYES CLOSED. NO DISTRESS NOTED. ASSISTED TO BATHROOM PRN.
--- NOTE | 2016-02-23 03:14 | NUR ---
PT AWAKE IN W/C INDEPENDENT IN W/C UP AT NURSING STATION, REQUESTING ZOFRAN AND HOPING THAT DIALYSIS CAN BE PRIOR TO THERAPY SHE FEELS SHE WILL DO BETTER IN THERAPY.
--- NOTE | 2016-02-23 04:00 | NUR ---
PT RESTING IN BED WITH EYES CLOSED.
[2016-02-23 05:49] VITALS: BP 129/69
--- NOTE | 2016-02-23 07:45 | NUR ---
RESTING QUIETLY IN BED. CALL LIGHT IN REACH
--- NOTE | 2016-02-23 08:15 | NUR ---
PT RESTING IN BED WITH EYES OPEN CALL LIGHT IN REACH NO PROBLEMS NOTED WILL MONITER
--- NOTE | 2016-02-23 09:15 | NUR ---
PT TRANSPORTED TO DIALYSIS SWEET VIA WHEELCHAIR
[2016-02-23 12:13] VITALS: BP 146/64
--- NOTE | 2016-02-23 12:45 | NUR ---
PT RETURNED FROM DIALYSIS VITALS STABLE NO COMPLAINTS PT RETURNED TO ROOM SET UP LUNCH TRAY CALL LIGHT IN REACH NO PROBLEMS WILL MONITER
[2016-02-23 13:43] LABS: BASOPHILS 0.8 % (0.0-2.0); EOSINOPHILS 2.8 % (0-7); HEMATOCRIT 30.3 % (36.0-48.0); HEMOGLOBIN 9.6 g/dL (12-16); IMMATURE GRANULOCYTES 0.3 % (0-5); LYMPHOCYTES 24.7 % (15-50); MCH 32.7 pg (26.0-34.0); MCHC 31.7 g/dL (31.0-37.0); MCV 103.1 fL (80.0-100.0); MEAN PLATELET VOLUME 9.2 fL (7.4-10.4); MONOCYTES 26.5 % (2-11); NEUTROPHILS 44.9 % (40-80); PLATELET COUNT 303 10x3/uL (130-400); RBC 2.94 10x6/uL (4.00-5.40); RDW 14.3 % (11.5-14.5); WBC 3.9 10x3/uL (4.8-10.8)
[2016-02-23 14:03] LABS: ANION GAP 8.2 mmol/L (8-16); CALCIUM 8.5 mg/dL (8.5-10.1); CARBON DIOXIDE 32.9 mmol/L (21.0-32.0)
[2016-02-23 14:06] LABS: CREATININE - SERUM 2.6 mg/dL (0.6-1.3); POTASSIUM - SERUM 3.1 mmol/L (3.5-5.1)
[2016-02-23 18:34] VITALS: BP 158/97
[2016-02-23 20:00] VITALS: BP 133/56
[2016-02-24] VITALS: BP 130/60
--- NOTE | 2016-02-24 01:36 | NUR ---
RECIEVED PATIENT IN HER ROOM, REPORT RECIEVED, ALERT AND ORIENTED x 4 , RIGHT CHEST ELIAN-SPLIT, LEFT ARM RESERVE UPPER ARM FISTULA, TRANSFERS WITH ASSIST, LUNGS CLEAR BILATERALLY, BOWEL SOUNDS x 4, O2 AT 2 LPM VIA NC, NO ACUTE DISTRESS NOTED OR VOICED BY PATIENT, WILL CONTINUE TO MONITOR.
--- NOTE | 2016-02-24 03:07 | NUR ---
PATINT RESTING QUIETLY NO ACUTE DISTRESS NOTED OR VOICED BY PATIENT.
[2016-02-24 05:32] VITALS: BP 158/61
--- NOTE | 2016-02-24 08:00 | NUR ---
SITTING UP IN BED EATING BREAKFAST. DENIES NEEDS
--- NOTE | 2016-02-24 12:09 | NUR ---
LAYING IN BED WATCHING TV. CALL LIGHT IN REACH
--- NOTE | 2016-02-24 14:29 | NUR ---
PATIENT DISCHARGING HOME PER PATIENT REQUEST. NO DME NEEDED PER PATIENT AND DECLINES HOME HEALTH. APPOINTMENTS; DR. SHELLI GONSALES 03/02/16 @ 12:00, WILL SEE DR. MCGREGOR ON HD DAYS, M-W- @ 11:45 AT [facility]. [facility] FORM SIGNED AND EXPLAINED AND FILED ION CHART. SON WILL TRANSPORT PATIENT HOME
--- NOTE | 2016-02-24 15:00 | NUR ---
PATIENT SITTING UP IN BED WATCHING TV. CALL LIGHT IN REACH.
[2016-02-24] MEDS ORDERED: RENAGEL800 MG PO (15:17)
[2016-02-24] MEDS ORDERED: ZOFRAN4 MG PO ×2 (15:20→15:21)
[2016-02-24] MEDS ORDERED: PROTONIX40 MG PO (15:22)
[2016-02-24] MEDS ORDERED: SODIUM BICARBO650 MG PO (15:23)
[2016-02-24] MEDS ORDERED: PROCRIT/EP10000 UNIT SQ (15:25)
[2016-02-24] MEDS ORDERED: CELEXA20 MG PO (15:26)
[2016-02-24] MEDS ORDERED: ATIVAN0.5 MG PO (15:27)
--- NOTE | 2016-02-24 18:13 | NUR ---
D/C HOME WITH ALL PERSONAL BELONGINGS. MEDS CALLED INTO [facility].
--- NOTE | 2016-04-21 12:28 | DS ---
PATIENT:AYDIN NUNEZ :[birth year] MEDICAL RECORD: [id number] DISCHARGE SUMMARY ADMISSION DATE: 02/16/16 DISCHARGE DATE: 02/24/16 This is a discharge dated 02/24/2016 from inpatient rehab. PRIMARY DIAGNOSIS: Decreased functional ability and ability to provide activities of daily living secondary to acute encephalopathy. SECONDARY DIAGNOSES: 1. Focal segmental glomerulosclerosis. 2. End-stage renal disease, on hemodialysis. 3. Hypertension. 4. Hypothyroidism. 5. Coronary artery disease. 6. Congestive heart failure. 7. Hyperlipidemia. 8. Atrial fibrillation. 9. Cerebrovascular accident by history. 10. Osteoarthritis. 11. Hyperphosphatemia. 12. Metabolic acidosis. 13. Anxiety/depression. CONSULTANTS FOLLOWING THIS HOSPITALIZATION: Nephrology with Dr. Lugo. HOSPITAL COURSE: Full H&P is located elsewhere on the chart on this 80-year-old female who was admitted to inpatient rehab for physical therapy and occupational therapy to improve gait, transfer skills, bed mobility, and activities of daily living to a modified independent level. She was evaluated by PT and OT and their plans of care were followed. She required fdc care for observation and assessment and medication administration. She was followed by nephrology during her hospital stay with labs managed by them. She was on hemodialysis 3 times weekly. There was a discussion during the stay that with renal where she was uncooperative with treatment. She was cooperative with therapies, most of the time with progression towards goals. She refused blood draw, so only labs were done on dialysis days. She was considered stable for discharge on 02/24/2016 have been made some progress with therapy. DISCHARGE MEDICATIONS: As per discharge medication reconciliation. DISCHARGE DISPOSITION: The patient is discharged home. She will continue her current diet and level of activity. She will follow up with primary care, Dr. Garcia in 1 week. She will see nephrology on dialysis days Tuesday, Tuesday, and Tuesday at [facility]. TRANSINT:[id number] Voice Confirmation ID: [id number] DOCUMENT ID: [id number] Dictated By: ELIAS RODRIGUEZ I have interviewed/examined the above patient and agree with these documented findings. DISCHARGE SUMMARY REPORT [id number] SUKHJINDER AYDIN CRUZ, MAX HO at 1228 at 1231 CC: [id number] DICTATION DATE: 04/17/16 1545 GRAVEL WEIGHER: 04/18/16 0432 DIS IN 02/24/16 [facility] [address] [place] [address]
== END 2016-02-24 18:13 | disposition home or self-care (01) | DRG 91 ==
LOC: D.REHAB
PROVIDERS: Internal Medicine Nephrology; ADMIT Emergency Medicine
PROC: 5A1D60Z (ICD-10-PCS; principal; 2016-02-18)
DX: G92 Toxic encephalopathy (principal); N18.6 End stage renal disease; I13.2 Hypertensive heart and chronic kidney disease with heart failure and with stage 5 chronic kidney disease, or end stage renal disease; E87.2 Acidosis; N26.9 Renal sclerosis, unspecified; I50.9 Heart failure, unspecified; Z99.2 Dependence on renal dialysis; E03.9 Hypothyroidism, unspecified; R41.82 Altered mental status, unspecified; I25.10 Atherosclerotic heart disease of native coronary artery without angina pectoris; E78.5 Hyperlipidemia, unspecified; I48.91 Unspecified atrial fibrillation; D72.829 Elevated white blood cell count, unspecified; E83.51 Hypocalcemia; D63.1 Anemia in chronic kidney disease; E83.39 Other disorders of phosphorus metabolism; F41.8 Other specified anxiety disorders

== ENCOUNTER 2016-02-29 23:50 | Emergency (ER) | payer MEDICARE ==
[2015-12-11 13:14] VITALS: BMI 24.4
[~2016-02-29 23:50] MED LIST changes: +ATIVAN0.5 MG PO; +CELEXA20 MG PO; +CORDARONE200 MG PO; +LISINOPRIL5 MG PO; +PROCRIT/EP10000 UNIT SQ; +RENAGEL800 MG PO; +SODIUM BICARBO650 MG PO
== END 2016-03-01 00:55 | disposition home or self-care (01) ==
LOC: D.ER 23:50
DX: K11.20 Sialoadenitis, unspecified (principal); I12.0 Hypertensive chronic kidney disease with stage 5 chronic kidney disease or end stage renal disease; N18.6 End stage renal disease; E21.3 Hyperparathyroidism, unspecified; E83.51 Hypocalcemia; D50.9 Iron deficiency anemia, unspecified

== ENCOUNTER 2016-05-12 18:44 | Emergency (ER) | payer MEDICARE ==
[2016-02-17 11:05] VITALS: BMI 20.9
[2016-05-12 19:23] LABS: BASOPHILS 0.3 % (0.0-2.0); EOSINOPHILS 1.7 % (0-7); HEMATOCRIT 28.3 % (36.0-48.0); HEMOGLOBIN 9.1 g/dL (12-16); IMMATURE GRANULOCYTES 0.4 % (0-5); LYMPHOCYTES 14.4 % (15-50); MCH 31.9 pg (26.0-34.0); MCHC 32.2 g/dL (31.0-37.0); MCV 99.3 fL (80.0-100.0); MEAN PLATELET VOLUME 10.1 fL (7.4-10.4); NEUTROPHILS 70.2 % (40-80); PLATELET COUNT 276 10x3/uL (130-400); RBC 2.85 10x6/uL (4.00-5.40); RDW 14.9 % (11.5-14.5); WBC 7.7 10x3/uL (4.8-10.8)
[2016-05-12 19:51] LABS: ANION GAP 19.7 mmol/L (8-16); BILIRUBIN - TOTAL 0.39 mg/dL (0.2-1.3); CALCIUM 8.4 mg/dL (8.5-10.1); CARBON DIOXIDE 22.1 mmol/L (21.0-32.0); CREATININE - SERUM 7.6 mg/dL (0.6-1.3); POTASSIUM - SERUM 4.8 mmol/L (3.5-5.1); PROTEIN - SERUM 6.8 g/dL (6.4-8.2)
== END 2016-05-12 22:03 | disposition home or self-care (01) ==
LOC: D.ER 18:44
PROVIDERS: Emergency Medicine
DX: R53.1 Weakness (principal); I12.0 Hypertensive chronic kidney disease with stage 5 chronic kidney disease or end stage renal disease; N18.6 End stage renal disease; E21.3 Hyperparathyroidism, unspecified; E83.51 Hypocalcemia; D50.9 Iron deficiency anemia, unspecified

== ENCOUNTER 2016-06-29 13:50 | Emergency (ER) | payer MEDICARE ==
[2016-02-17 11:05] VITALS: BMI 20.9
[2016-06-29 14:17] LABS: BASOPHILS 0.4 % (0-2); HEMATOCRIT 38.3 % (36.0-48.0); HEMOGLOBIN 12.2 g/dL (12-16); IMMATURE GRANULOCYTES 0.1 % (0-5); LYMPHOCYTES 36.5 % (15-50); MCH 33.6 pg (26.0-34.0); MCHC 31.9 g/dL (31.0-37.0); MCV 105.5 fL (80.0-100.0); MONOCYTES 13.9 % (2-11); NEUTROPHILS 47.1 % (40-80); RBC 3.63 10x6/uL (4.00-5.40); RDW 16.9 % (11.5-14.5); WBC 8.1 10x3/uL (4.8-10.8)
[2016-06-29 14:29] LABS: PLATELET COUNT 362 10x3/uL (130-400)
[2016-06-29 14:38] LABS: ALBUMIN 4.1 g/dL (3.4-5.0); ALKALINE PHOSPHATASE 197 U/L (46-116); ALT (SGPT) 36 U/L (10-68); BILIRUBIN - TOTAL 0.68 mg/dL (0.2-1.3); CALC OSMOLALITY 290 mosm/kg (275-300); CALCIUM 9.2 mg/dL (8.5-10.1); CHLORIDE - SERUM 98 mmol/L (98-107); CREATININE - SERUM 6.2 mg/dL (0.6-1.3); GLUCOSE 105 mg/dL (74-106); POTASSIUM - SERUM 5.2 mmol/L (3.5-5.1); PROTEIN - SERUM 7.7 g/dL (6.4-8.2); SODIUM 140 mmol/L (136-145); UREA NITROGEN 45 mg/dL (7-18); eGFR NON AFRICAN AMERICAN 7 mL/min (90-120)
[2016-06-29 14:43] LABS: TROPONIN-I < 0.017 ng/mL (0.000-0.060)
== END 2016-06-29 17:20 | disposition home or self-care (01) ==
LOC: D.ER 13:50
PROVIDERS: Emergency Medicine
DX: I12.9 Hypertensive chronic kidney disease with stage 1 through stage 4 chronic kidney disease, or unspecified chronic kidney disease (principal); N18.9 Chronic kidney disease, unspecified; I50.9 Heart failure, unspecified; E21.3 Hyperparathyroidism, unspecified; D50.9 Iron deficiency anemia, unspecified

== ENCOUNTER → 2016-11-18 11:56 | Outpatient (CLI) | payer MEDICARE ==
[2016-02-17 11:05] VITALS: BMI 20.9
== END | disposition home or self-care (01) ==
LOC: D.US 11:56
DX: R42 Dizziness and giddiness (principal); R55 Syncope and collapse

== ENCOUNTER 2017-01-11 06:07 | Day surgery (SDC) | payer MEDICARE ==
[~2017-01-11] VITALS: Ht 166.4 cm; Wt 56.7 kg
[2017-01-11 07:09] LABS: BASOPHILS 0.5 % (0-2); EOSINOPHILS 5.7 % (0-7); HEMATOCRIT 32.5 % (36.0-48.0); HEMOGLOBIN 10.6 g/dL (12-16); MCH 34.8 pg (26.0-34.0); MCHC 32.6 g/dL (31.0-37.0); MCV 106.6 fL (80.0-100.0); MEAN PLATELET VOLUME 9.2 fL (7.4-10.4); MONOCYTES 13.1 % (2-11); NEUTROPHILS 48.7 % (40-80); RBC 3.05 10x6/uL (4.00-5.40); RDW 14.1 % (11.5-14.5); WBC 3.9 10x3/uL (4.8-10.8)
[2017-01-11 07:10] LABS: PLATELET COUNT 220 10x3/uL (130-400)
[2017-01-11 07:17] LABS: APTT 28.3 SECONDS (22.8-39.4); INR 0.89 (0.85-1.17); PROTIME 11.6 SECONDS (11.6-15.0)
[2017-01-11 07:18] LABS: ANION GAP 13.3 mmol/L (8-16); CALCIUM 8.4 mg/dL (8.5-10.1); CARBON DIOXIDE 29.1 mmol/L (21.0-32.0); CREATININE - SERUM 6.5 mg/dL (0.6-1.3); POTASSIUM - SERUM 4.4 mmol/L (3.5-5.1)
[2017-01-11] MEDS ORDERED: XANAX0.25 MG PO (07:34)
[2017-01-11 07:51] VITALS: BP 148/64; Ht 166.4 cm; Wt 56.7 kg
--- NOTE | 2017-01-15 15:06 | OP ---
PATIENT NAME: AYDIN NUNEZ MEDICAL RECORD: [id number] :[birth year] LOCATION:D.OPS ADMISSION DATE: SURGEON: GONZALO SEALS MD DATE OF OPERATION: 01/11/2017 REFERRED BY: Will Lugo MD. PREOPERATIVE DIAGNOSES: 1. 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 2. End-stage renal disease, N18.6 and dependence on hemodialysis, Z 99.2. POSTOPERATIVE DIAGNOSES: 1. 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 2. End-stage renal disease, N18.6 and dependence on hemodialysis, Z 99.2. OPERATION PERFORMED: Fistulogram with a selective brachial arteriogram and open Garcia banding procedure of left brachiocephalic AV fistula. SURGEON: Gonzalo Seals MD ANESTHESIA: General with LMA per [facility]. PREOPERATIVE NOTE: Ms. Ronnie Cruz is a 79-year-old white female patient, on chronic hemodialysis with a very nice high flow right brachiocephalic AV fistula, Sarai type. She has ischemic symptoms in the hand and workup at [facility], angiography demonstrated essentially no to minimal flow to the hand while the fistula is open. She is brought to the operating room at this time for banding procedure. Note, the patient does not have gangrene or ulceration or impending tissue loss in either hand or the fingers. She does have pulsatile Doppler flow in the left radial artery, which does improve with occlusion of the proximal fistula, but is present with the fistula open. PROCEDURE: With patient under anesthesia in supine position, she was prepped and draped in a sterile manner and I made an incision over the medial aspect of the distal portion of the fistula over the JA segment and I exposed the fistula with blunt and sharp dissection and encircled it with a Silastic loop. I then accessed the fistula with micropuncture technique and inserted a 6-Mohawk introducer. A fistulogram was performed, which revealed no evidence of any stenosis or obstruction to run off to the right atrium. The arterial anastomosis was wide open. I then passed a Glidewire and a glide catheter selectively across the arterial anastomosis and proximally up the brachial artery and performed a digital subtraction brachial artery arteriogram, which revealed no evidence of stenosis or disease of the brachial artery, but essentially complete diversion of flow from the brachial artery by the fistula with no flow demonstrated going distally to the forearm and hand. I then advanced a 4 mm diameter angioplasty balloon over the wire and positioned it in the juxta anastomotic segment of the fistula. The balloon was inflated to 15 atmospheres of pressure and kept at that level and two 2-0 Prolene ties were passed around the fistula with the balloon inflated and tied snugly. The balloon was then deflated and removed and the glide catheter reinserted up into the brachial artery and a repeat or post-banding selective brachial arteriogram performed, which revealed significant improvement in flow into the forearm via the distal brachial artery and radial and ulnar arteries. There was a good persistent flow through the banded JA segment and through the fistula itself. I felt at this point that this should significantly impact and hopefully relieve OPERATIVE REPORT [id number] SLAUGHTER AYDIN CRUZ her symptoms and that no further flow restriction was necessary today. Doppler examination did demonstrate improved pulsatile Doppler signals of the radial artery at the wrist level. The hardware and 6-Mohawk sheaths were removed and hemostasis obtained at that puncture site with a [id number]-zl-[id number] 4-0 Prolene suture and some direct pressure and that site was later dressed with Avitene Ultrafoam, Tegaderm, and Cavilon skin prep. The primary incision was closed with a running intracuticular Monocryl and Dermabond glue. It was dressed and sealed with Maxorb AG and Tegaderm with Cavilon skin prep. The patient was awakened and taken to the recovery room with a functioning fistula and improved flow to the hand. She will be discharged today and made an appointment to return to see me in my office next week. She is given instructions to resume her usual medications and diet and she is told that she may shower and wash over the waterproof plastic bandages. She will continue her routine dialysis schedule. I have advised her to take Tylenol of pain. I have not given her a prescription for any narcotic analgesics. Prior to closing the wound, I did infiltrate it with 0.25% Marcaine without epinephrine, so there should be minimal or no initial postoperative pain. Blood loss was insignificant, none replaced. All sponges, instruments, and needles were accounted for. No drain was used and no surgical specimens submitted for histopathology. TRANSINT:[id number] Voice Confirmation ID: [id number] DOCUMENT ID: [id number] GONZALO SEALS MD at 1506 CC: WILL LUGO MD [id number] DICTATION DATE: 01/11/17 0950 CAP CUTTER: 01/11/17 1056 [facility] 01/11/17 [facility] [address] [place] [address]
== END 2017-01-11 13:30 | disposition home or self-care (01) ==
LOC: D.OPS 06:07
PROVIDERS: Surgery
DX: T82.898A Other specified complication of vascular prosthetic devices, implants and grafts, initial encounter (principal); N18.6 End stage renal disease; Z99.2 Dependence on renal dialysis; Z01.812 Encounter for preprocedural laboratory examination

== ENCOUNTER → 2017-01-27 09:03 | Outpatient (CLI) | payer MEDICARE ==
[2017-01-11 07:51] VITALS: BMI 20.5
== END | disposition home or self-care (01) ==
LOC: D.CT 09:03
DX: R91.8 Other nonspecific abnormal finding of lung field (principal); R93.8 Abnormal findings on diagnostic imaging of other specified body structures

== ENCOUNTER 2018-03-23 21:40 | Inpatient (IN) | payer MEDICARE ==
[~2018-03-23] VITALS: Ht 166.4 cm; Wt 58.3 kg
[2018-03-23] MEDS ORDERED: CETIRIZINE HCL5 MG (21:55)
[2018-03-23] MEDS ORDERED: TYLENOL W/CODEI1 TAB (21:56)
[2018-03-23] MEDS ORDERED: NEPHRO-VITE RX1 TAB PO (21:57)
[2018-03-23] MEDS ORDERED: MECLIZINE HCL25 MG PO (21:57)
[2018-03-23] MEDS ORDERED: SINEMET 25-2501 EACH PO (21:58)
--- NOTE | 2018-03-23 22:07 | NUR ---
UPON ROUNDING ON PT, RIGHT SIDED FACIAL DROOP NOTED, PT HAVING DIFFICULTY SPEAKING. EDP NOTIFIED.
--- NOTE | 2018-03-23 22:12 | NUR ---
PT TO RADIOLOGY.
--- NOTE | 2018-03-23 22:37 | NUR ---
PT RETURNED FROM RADIOLOGY.
[2018-03-23 22:40] LABS: BASOPHILS 0.6 % (0-2); EOSINOPHILS 1.5 % (0-7); HEMATOCRIT 37.4 % (36.0-48.0); HEMOGLOBIN 12.6 g/dL (12-16); LYMPHOCYTES 25.4 % (15-50); MCH 34.5 pg (26.0-34.0); MCHC 33.7 g/dL (31.0-37.0); MCV 102.5 fL (80.0-100.0); MEAN PLATELET VOLUME 9.5 fL (7.4-10.4); MONOCYTES 17.3 % (2-11); NEUTROPHILS 55.2 % (40-80); PLATELET COUNT 255 10x3/uL (130-400); RBC 3.65 10x6/uL (4.00-5.40); RDW 12.9 % (11.5-14.5); WBC 5.4 10x3/uL (4.8-10.8)
[2018-03-23 22:45] VITALS: BP 216/89
--- NOTE | 2018-03-23 22:45 | NUR ---
AR SAVES INITIATED PER DR SALAZAR ORDERS.
--- NOTE | 2018-03-23 22:47 | NUR ---
STROKE BAND [id number] PLACED ON PT
[2018-03-23 22:50] LABS: APTT 28.3 SECONDS (22.8-39.4); INR 0.97 (0.85-1.17); PROTIME 12.4 SECONDS (11.6-15.0)
[2018-03-23 22:55] LABS: ALBUMIN 3.7 g/dL (3.4-5.0); ALKALINE PHOSPHATASE 74 U/L (46-116); ALT (SGPT) 11 U/L (10-68); BILIRUBIN - TOTAL 0.44 mg/dL (0.2-1.3); CALC OSMOLALITY 277 mosm/kg (275-300); CALCIUM 9.1 mg/dL (8.5-10.1); CARBON DIOXIDE 23.7 mmol/L (21.0-32.0); CHLORIDE - SERUM 92 mmol/L (98-107); GLUCOSE 120 mg/dL (74-106); POTASSIUM - SERUM 4.9 mmol/L (3.5-5.1); PROTEIN - SERUM 7.6 g/dL (6.4-8.2); SODIUM 131 mmol/L (136-145); UREA NITROGEN 51 mg/dL (7-18); eGFR NON AFRICAN AMERICAN 7 mL/min (90-120)
[2018-03-23 22:59] LABS: D-DIMER-QUANTITATIVE 0.31 ug/mLFEU (0.20-0.54)
[2018-03-23 23:06] LABS: CKMB 2.5 U/L (0.0-3.6); CREATINE KINASE 121 UL (21-215); THYROID STIMULATING HORMONE 45.39 uIU/mL (0.36-3.74); TROPONIN-I 0.021 ng/mL (0.000-0.060)
--- NOTE | 2018-03-23 23:26 | NUR ---
URINE SENT TO LAB
[2018-03-23 23:30] VITALS: BP 187/82
[2018-03-23 23:34] LABS: T4 THYROXIN - FREE 0.34 ng/dL (0.76-1.46)
[2018-03-23 23:35] LABS: T4 THYROXINE 2.3 ug/dL (4.7-13.3)
[2018-03-23 23:36] LABS: APPEARANCE CLEAR (CLEAR); BILIRUBIN NEGATIVE (NEGATIVE); COLOR YELLOW (YELLOW); GLUCOSE NEGATIVE (NEGATIVE); KETONE NEGATIVE (NEGATIVE); NITRITE NEGATIVE (NEGATIVE); PROTEIN 1+ mg/dL (NEGATIVE); UROBILINOGEN NORMAL (NORMAL)
[2018-03-23 23:37] LABS: BACTERIA NONE SEEN /hpf (NONE SEEN); EPITHELIAL CELLS NSEEN /hpf (0-5); RED CELLS - URINE 0-5 /hpf (0-5); UDS - AMPHET NEGATIVE QUAL (NEGATIVE); UDS - BARB NEGATIVE QUAL (NEGATIVE); UDS - BENZO NEGATIVE QUAL (NEGATIVE); UDS - COCAINE NEGATIVE QUAL (NEGATIVE); UDS - OPIATE POSITIVE QUAL (NEGATIVE); UDS - PCP NEGATIVE QUAL (NEGATIVE); UDS - THC NEGATIVE QUAL (NEGATIVE); WHITE CELLS - URINE RARE /hpf (0-5)
[2018-03-24] VITALS (7 sets, daily range): BP systolic 142–177; BP diastolic 62–84; Ht 166.4 cm; Wt 58.3 kg
--- NOTE | 2018-03-24 00:29 | NUR ---
PT SHOWING IMPROVEMENT IN SPEECH AND FACIAL DROOP AFTER ADMINISTRATION OF IV SYNTHROID. EDP NOTIFIED.
--- NOTE | 2018-03-24 02:43 | NUR ---
PT SITTING UPRIGHT IN BED TALKING WITH SON AT BEDSIDE, NO FACIAL DROOP NOTED AND PT'S SPEECH NOW CLEAR. PLAN OF CARE DISCUSSED WITH PT, PT DENIES ANY COMPLAINTS OR NEEDS AT THIS TIME. WILL CONTINUE TO MONITOR.
--- NOTE | 2018-03-24 04:10 | NUR ---
RECIEVED TO ROOM FROM ER. ALERT.ORIENTED. RESP UNLABORED. NO DISTRESS NOTED. SL TO RIGHT HAND INTACT WITHOUT REDNESS OR EDEMA NOTED. FISTULA TO LEFT UPPER ARM.ORIENTED TO ROOM. FAMILY AT BEDSIDE.
[2018-03-24] MEDS ORDERED: BENADRYL50 MG PO (04:20)
--- NOTE | 2018-03-24 07:40 | NUR ---
PT RESTING IN BED, EYES OPEN. NO C/O PAIN. NO S/S OF ACUTE DISTRESS NOTED. PT HAS FISTULA LEFT AR, THRILL AND BRUIT PRESENT. DIALYSIS --. ON FALL PRECAUTIONS. UP WITH ASSIST. IV TO RIGHT AC, SITE PATENT WITHOUT REDNESS OR SWELLING, SL. PT DENIES ANYTHING FURTHER AT THIS TIME. CALL LIGHT IN REACH. WILL CONTINUE TO MONITOR.
--- NOTE | 2018-03-24 19:30 | NUR ---
PT RESTING IN BED, EYES OPEN. NO C/O PAIN. NO S/S OF ACUTE DISTRESS NOTED. PT DENIES ANYTHING FURTHER AT THIS TIME. CALL LIGHT IN REACH. FALL PRECAUTIONS IN PLACE. BED IN LOWEST POSITION. WILL CONTINUE TO MONITOR.
[2018-03-25] VITALS: BP 116/42
[2018-03-25 04:00] VITALS: BP 119/50
--- NOTE | 2018-03-25 07:00 | NUR ---
REPORT RECIEVED ASSUMED CARE. PATIENT IN BED EYES CLOSED RESTING QUIETLY. IV INTACT. CALL LIGHT WITHIN REACH.
[2018-03-25 07:18] LABS: BASOPHILS 0.5 % (0-2); EOSINOPHILS 4.2 % (0-7); HEMATOCRIT 36.3 % (36.0-48.0); IMMATURE GRANULOCYTES 0.3 % (0-5); LYMPHOCYTES 14.5 % (15-50); MCH 34.5 pg (26.0-34.0); MCHC 33.1 g/dL (31.0-37.0); MCV 104.3 fL (80.0-100.0); MEAN PLATELET VOLUME 10.3 fL (7.4-10.4); MONOCYTES 15.1 % (2-11); NEUTROPHILS 65.4 % (40-80); PLATELET COUNT 204 10x3/uL (130-400); RBC 3.48 10x6/uL (4.00-5.40); RDW 13.1 % (11.5-14.5)
[2018-03-25 07:23] LABS: WBC 7.6 10x3/uL (4.8-10.8)
[2018-03-25 07:33] LABS: ANION GAP 20.6 mmol/L (8-16); CALCIUM 8.7 mg/dL (8.5-10.1); CARBON DIOXIDE 22.6 mmol/L (21.0-32.0); CREATININE - SERUM 6.8 mg/dL (0.6-1.3); POTASSIUM - SERUM 5.2 mmol/L (3.5-5.1)
[2018-03-25 09:15] VITALS: BP 140/58
[2018-03-25 14:10] VITALS: BP 125/54
--- NOTE | 2018-03-25 15:00 | NUR ---
DIALYSIS NURSE AURELIO LOZOYA STATED BLD CULTURES AND VANC NO LONGER NEEDED PER DR. BARAJAS. PATIENT IN BED WITH IV INTACT. RECIEVING DIALYSIS. CALL LIGHT WITHIN REACH.
[2018-03-25 18:09] VITALS: BP 145/72
--- NOTE | 2018-03-25 18:55 | NUR ---
PATIENT IN BED WITH IV INTACT. NO COMPLAINTS OR SIGNS OF DISTRESS. EYES CLOSED RESTING QUIETLY. CALL LIGHT WITHIN REACH.
[2018-03-25 20:00] VITALS: BP 147/70
--- NOTE | 2018-03-25 23:00 | NUR ---
PT TAKING SCHEDULED MEDS AT 2300 REQUESTED. ATIVAN GIVEN FOR ANXIETY. FACIAL DROOP APPEARS RESOLVED. LEFT ARM FISTULA THRILL/BRUIT PRESENT. ASSESSMENT PER FLOW-SHEET. WILL CONTINUE TO MONITOR.
[2018-03-26] VITALS: BP 129/55
[2018-03-26 04:00] VITALS: BP 134/50
[2018-03-26 06:17] LABS: BASOPHILS 0.7 % (0-2); EOSINOPHILS 5.7 % (0-7); HEMATOCRIT 34.8 % (36.0-48.0); HEMOGLOBIN 11.4 g/dL (12-16); IMMATURE GRANULOCYTES 0.2 % (0-5); LYMPHOCYTES 29.2 % (15-50); MCH 33.9 pg (26.0-34.0); MCHC 32.8 g/dL (31.0-37.0); MCV 103.6 fL (80.0-100.0); MONOCYTES 17.1 % (2-11); NEUTROPHILS 47.1 % (40-80); PLATELET COUNT 233 10x3/uL (130-400); RBC 3.36 10x6/uL (4.00-5.40)
[2018-03-26 06:21] LABS: WBC 5.5 10x3/uL (4.8-10.8)
[2018-03-26 06:37] LABS: ANION GAP 18.9 mmol/L (8-16); CALCIUM 8.3 mg/dL (8.5-10.1); CARBON DIOXIDE 24.4 mmol/L (21.0-32.0); CREATININE - SERUM 5.7 mg/dL (0.6-1.3)
[2018-03-26 06:38] LABS: POTASSIUM - SERUM 4.3 mmol/L (3.5-5.1)
--- NOTE | 2018-03-26 07:30 | NUR ---
PATIENT SITTING UP IN BED WITH NO COMPLAINTS OR SIGNS OF DISTRESS. STATES THAT FISTULA SITE IS SORE. BRUISING AND SMALL AMOUNT OF SWELLING NOTED. LAST DID DIALYSIS YESTERDAY. + BRUITE AND THRILL. LOOKS CLEAN AND DRY. IV SL X2 CDI. EXPLAINED TO PATIENT TO SPEAK WITH PHYSICIAN ABOUT FISTULA SITE THAT IS LOOKS OK AT THIS TIME. VERBALIZED UNDERSTANDING. CALL LIGHT WITHIN REACH.
[2018-03-26] MEDS ORDERED: SYNTHROID112 MCG PO (08:23)
[2018-03-26 09:40] VITALS: BP 152/60
--- NOTE | 2018-03-26 11:07 | NUR ---
PRESCRIPTIONS CALLED IN TO [facility] PHARM[facility]IST ON [address]. PHARMACIST = NUNO. PRESCRIPTION FOR CLONIDINE AND LEVOTHYROXINE CALLED IN PATIENTS NORMAL PHARMACY IS CLOSED TODAY.
--- NOTE | 2018-03-26 12:14 | NUR ---
PATIENT RECIEVED DC INSTRUCTIONS. VERBALIZED UNDERSTANDING. STATED SHE SPOKE WITH PHYSICIAN ABOUT FISTULA HURTING AND BRUISED FROM YESTERDAY'S DIALYSIS. EXPLAINED TO PATIENT THAT PRESCRIPTIONS ARE CALLED INTO [facility] ON [address]. NO QUESTIONS AT THIS TIME. FAMILY AT SIDE. CALL LIGHT WITHIN REACH. IV X 2 REMOVED WITH CATH TIP INTACT. CALL LIGHT WITHIN REACH.
== END 2018-03-26 12:29 | disposition home or self-care (01) | DRG 643 ==
LOC: D.ER 21:40 → D.MS 03-24 02:11 → D.EDHOLD 03-24 02:11 → D.ICU 03-24 02:58 → D.EDHOLD 03-24 03:06 → D.MS 03-24 03:30
PROVIDERS: Family Medicine; Internal Medicine Nephrology; ADMIT Internal Medicine Nephrology
PROC: 5A1D70Z Performance of Urinary Filtration, Intermittent, Less than 6 Hours Per Day (ICD-10-PCS; principal; 2018-03-24)
DX: E03.9 Hypothyroidism, unspecified (principal); N18.6 End stage renal disease; I13.2 Hypertensive heart and chronic kidney disease with heart failure and with stage 5 chronic kidney disease, or end stage renal disease; I50.9 Heart failure, unspecified; Z99.2 Dependence on renal dialysis; I25.10 Atherosclerotic heart disease of native coronary artery without angina pectoris; Z86.73 Personal history of transient ischemic attack (TIA), and cerebral infarction without residual deficits

== ENCOUNTER 2019-01-11 14:38 | Inpatient (IN) | payer MEDICARE ==
[~2019-01-11] VITALS: Ht 166.4 cm; Wt 61.5 kg
[2019-01-11] VITALS (18 sets, daily range): BP systolic 133–215; BP diastolic 60–89; BMI 22.0
[~2019-01-11 14:38] MED LIST changes: +BENADRYL50 MG PO; +CETIRIZINE HCL5 MG; +MECLIZINE HCL25 MG PO; +NEPHRO-VITE RX1 TAB PO; +SINEMET 25-2501 EACH PO; +SYNTHROID112 MCG PO; +TYLENOL W/CODEI1 TAB
[2019-01-11] MEDS ORDERED: ATIVAN0.5 MG PO (14:49)
[2019-01-11] MEDS ORDERED: CYCLOBENZAPRINE5 MG PO (14:50)
[2019-01-11] MEDS ORDERED: LIPITOR20 MG PO (14:51)
[2019-01-11] MEDS ORDERED: LISINOPRIL20 MG PO (14:52)
[2019-01-11] MEDS ORDERED: PHENERGAN25 M1 PO (14:52)
[2019-01-11] MEDS ORDERED: NITROQUICK0.4 MG SL (14:53)
[2019-01-11] MEDS ORDERED: RENA-VITE TABL0.8 MG PO (14:54)
[2019-01-11] MEDS ORDERED: RESTORIL15 MG PO (14:55)
[2019-01-11] MEDS ORDERED: CETIRIZINE HCL5 MG PO (14:55)
[2019-01-11] MEDS ORDERED: LASIX40 MG PO (14:56)
[2019-01-11 15:37] LABS: BASOPHILS 0.3 % (0-2); EOSINOPHILS 1.4 % (0-7); HEMOGLOBIN 12.3 g/dL (12-16); IMMATURE GRANULOCYTES 0.2 % (0-5); LYMPHOCYTES 24.7 % (15-50); MCH 34.1 pg (26.0-34.0); MCHC 32.4 g/dL (31.0-37.0); MCV 105.3 fL (80.0-100.0); MEAN PLATELET VOLUME 9.7 fL (7.4-10.4); MONOCYTES 12.4 % (2-11); RBC 3.61 10x6/uL (4.00-5.40); RDW 14.5 % (11.5-14.5); WBC 5.7 10x3/uL (4.8-10.8)
[2019-01-11 15:40] LABS: PLATELET COUNT 280 10x3/uL (130-400)
--- NOTE | 2019-01-11 15:45 | NUR ---
PT BACK TO ED AT THIS TIME FOLLOWING ORDERED CT SCAN.
[2019-01-11 15:51] LABS: INR 0.92 (0.85-1.17); PROTIME 11.9 SECONDS (11.6-15.0)
[2019-01-11 15:52] LABS: APTT 27.8 SECONDS (22.8-39.4); CALC OSMOLALITY 282 mosm/kg (275-300); CALCIUM 9.9 mg/dL (8.5-10.1); CHLORIDE - SERUM 101 mmol/L (98-107); CREATININE - SERUM 4.3 mg/dL (0.6-1.3); GLUCOSE 101 mg/dL (74-106); POTASSIUM - SERUM 5.2 mmol/L (3.5-5.1); SODIUM 138 mmol/L (136-145); UREA NITROGEN 31 mg/dL (7-18); eGFR NON AFRICAN AMERICAN 10 mL/min (90-120)
[2019-01-11 16:08] LABS: ALBUMIN 3.5 g/dL (3.4-5.0); ALKALINE PHOSPHATASE 119 U/L (46-116); ALT (SGPT) 9 U/L (10-68); BILIRUBIN - TOTAL 0.53 mg/dL (0.2-1.3); CKMB 1.2 U/L (0.0-3.6); CREATINE KINASE 52 UL (21-215); MAGNESIUM - SERUM 1.6 mg/dL (1.8-2.4); PROTEIN - SERUM 7.4 g/dL (6.4-8.2); TROPONIN-I 0.023 ng/mL (0.000-0.060)
--- NOTE | 2019-01-11 18:39 | NUR ---
ROOM [id number] ASSIGNED AT 1809 AND MARKED DIRTY, ATTEMPTED TO CALL REPORT AT 1837, ROOM STILL DIRTY. CV ICU TO NOTIFY ED WHEN ASSIGNED ROOM IS CLEAN AND READY FOR PATIENT.
--- NOTE | 2019-01-11 19:00 | NUR ---
ATTEMPTED TO CALL REPORT, ROOM IS NOT READY AT THIS TIME.
--- NOTE | 2019-01-11 19:11 | NUR ---
HAND OFF REPORT GIVEN TO DARELL KERN
--- NOTE | 2019-01-11 20:09 | NUR ---
ATTEMPTED TO CALL REPORT ROOM IS NOT READY AT THIS TIME PER HIMANSHU
--- NOTE | 2019-01-11 20:34 | NUR ---
PT LAYING IN BED. RESPIRATIONS ARE EVEN AND UNLABORED. COLOR WNL FOR RACE. FAMILY AT BEDSIDE. VSS. WILL CONTINUE TO MONITOR. AWAITING PT TRANSFER TO ICU BED AT THIS TIME.
--- NOTE | 2019-01-11 20:49 | NUR ---
CONTACTED LOCKSTITCH WAISTLINE JOINER TO ASK ABOUT BED UPDATE. BED IS NOT AVAILABLE FOR PT TO BE TRANSPORTED AT THIS TIME.
--- NOTE | 2019-01-11 21:20 | NUR ---
REC'D TO CARE, PT TRANSFERRED SELF TO BED. SEE ADMISSION HX AND ASSESSMENT. PT ANXIOUS AND SOMEWHAT AGITATED AT THIS TIME. REFUSES BLOOD DRAW. PT CALMED WITHIN A FEW MINUTES. ANSWERS ALL QUESTIONS APPROP. WILL TITRATE CARDENE GTT PER MD ORDERS - SEE FLOWSHEET.
--- NOTE | 2019-01-11 22:00 | NUR ---
WEANING CARDENE GTT
[2019-01-11] MEDS ORDERED: ZESTRIL20 MG PO (23:08)
--- NOTE | 2019-01-11 23:20 | NUR ---
PT UP TO BSC, VOIDED 250 ML CLEAR, YELLOW URINE. ASHLEE-CARE PER PT AND BACK TO BED. VSS, CONT TO WEAN CARDENE GTT PER MD ORDERS.
[2019-01-12] VITALS (13 sets, daily range): BP systolic 108–178; BP diastolic 52–94; Ht 166.4 cm; Wt 61.5 kg
--- NOTE | 2019-01-12 01:30 | NUR ---
PT WATCHING TV. VSS. NO SIGN OF DISTRESS. C/L IN REACH.
--- NOTE | 2019-01-12 02:57 | NUR ---
REASSESSMENT PER FLOWSHEET. VSS. DENIES NEEDS.
--- NOTE | 2019-01-12 05:10 | NUR ---
PT WATCHING TV, DENIES NEEDS. SAYS SHE WILL ALLOW BLOOD DRAW THIS AM.
--- NOTE | 2019-01-12 05:35 | NUR ---
PT COOPERATIVE WITH AM BLOOD DRAW.
[2019-01-12 06:35] LABS: ALBUMIN 3.1 g/dL (3.4-5.0); BASOPHILS 0.4 % (0-2); BILIRUBIN - TOTAL 0.41 mg/dL (0.2-1.3); CARBON DIOXIDE 24.5 mmol/L (21.0-32.0); EOSINOPHILS 3.1 % (0-7); HEMATOCRIT 34.3 % (36.0-48.0); HEMOGLOBIN 10.9 g/dL (12-16); IMMATURE GRANULOCYTES 0.2 % (0-5); MCH 33.6 pg (26.0-34.0); MCHC 31.8 g/dL (31.0-37.0); MCV 105.9 fL (80.0-100.0); MEAN PLATELET VOLUME 9.6 fL (7.4-10.4); MONOCYTES 16.6 % (2-11); NEUTROPHILS 50.7 % (40-80); PLATELET COUNT 289 10x3/uL (130-400); POTASSIUM - SERUM 4.5 mmol/L (3.5-5.1); PROTEIN - SERUM 6.3 g/dL (6.4-8.2); RBC 3.24 10x6/uL (4.00-5.40); RDW 14.8 % (11.5-14.5); TROPONIN-I 0.02 ng/mL (0.000-0.060); WBC 5.1 10x3/uL (4.8-10.8)
[2019-01-12] MEDS ORDERED: CATAPRES0.2 MG PO (07:41)
[2019-01-12] MEDS ORDERED: LISINOPRIL40 MG PO (07:41)
[2019-01-12 09:14] LABS: UDS - AMPHET NEGATIVE QUAL (NEGATIVE); UDS - BARB NEGATIVE QUAL (NEGATIVE); UDS - BENZO NEGATIVE QUAL (NEGATIVE); UDS - COCAINE NEGATIVE QUAL (NEGATIVE); UDS - OPIATE POSITIVE QUAL (NEGATIVE); UDS - PCP NEGATIVE QUAL (NEGATIVE); UDS - THC NEGATIVE QUAL (NEGATIVE)
[2019-01-12 09:26] LABS: APPEARANCE CLEAR (CLEAR); BILIRUBIN NEGATIVE (NEGATIVE); COLOR YELLOW (YELLOW); GLUCOSE 50 mg/dL (NEGATIVE); KETONE SMALL mg/dL (NEGATIVE); NITRITE NEGATIVE (NEGATIVE); PROTEIN 3+ mg/dL (NEGATIVE); SPECIFIC GRAVITY 1.005 (1.005-1.020); UROBILINOGEN NORMAL (NORMAL)
[2019-01-12 09:27] LABS: BACTERIA FEW /hpf (NEGATIVE); EPITHELIAL CELLS 0-5 /hpf (0-5); MUCUS <1+ /lpf (NONE SEEN); RED CELLS - URINE RARE /hpf (0-5); WHITE CELLS - URINE 0-5 /hpf (NEGATIVE)
--- NOTE | 2019-01-12 12:57 | NUR ---
PT TO HD DEPT AFTER SHE ATE HER LUNCH.
--- NOTE | 2019-01-12 20:00 | NUR ---
PT UPSET THAT SHE HAD NOT DISCHARGED BY THIS TIME. CALLED RENAL GUN NUMBER ISAIAH AND RECEIVED DISCHARGE ORDER. IV D/C FROM LEFT FA. CATHETER TIP INTACT. DISCHARGE PAPERWORK SIGNED AND ALL QUESTIONS ANSWERED. SON ESCORTED PT OUT VIA W/C.
== END 2019-01-12 23:16 | disposition home or self-care (01) | DRG 304 ==
LOC: D.ER 14:38 → D.CVICU 17:35 → D.M2 01-12 16:02
PROVIDERS: Family Medicine; ADMIT Internal Medicine; ATTEND Internal Medicine
DX: I16.9 Hypertensive crisis, unspecified (principal); N18.6 End stage renal disease; I12.0 Hypertensive chronic kidney disease with stage 5 chronic kidney disease or end stage renal disease; Z99.2 Dependence on renal dialysis; E87.5 Hyperkalemia; R41.82 Altered mental status, unspecified; R07.9 Chest pain, unspecified; E03.9 Hypothyroidism, unspecified; D63.1 Anemia in chronic kidney disease

== ENCOUNTER 2019-06-22 14:46 | Emergency (ER) | payer MEDICARE ==
[~2019-06-22] VITALS: Ht 166.4 cm; Wt 54.5 kg
[~2019-06-22 14:46] MED LIST changes: +CATAPRES0.2 MG PO; +CETIRIZINE HCL5 MG PO; +CYCLOBENZAPRINE5 MG PO; +LASIX40 MG PO; +LIPITOR20 MG PO; +LISINOPRIL20 MG PO; +LISINOPRIL40 MG PO; +NITROQUICK0.4 MG SL; +PHENERGAN25 M1 PO; +ZESTRIL20 MG PO
[2019-06-22 14:56] VITALS: Ht 166.4 cm; Wt 54.5 kg
[2019-06-22 15:11] LABS: BASOPHILS 0.1 % (0-2); EOSINOPHILS 0.6 % (0-7); HEMATOCRIT 37.6 % (36.0-48.0); HEMOGLOBIN 12.2 g/dL (12-16); IMMATURE GRANULOCYTES 0.1 % (0-5); LYMPHOCYTES 43.5 % (15-50); MCH 33.6 pg (26.0-34.0); MCHC 32.4 g/dL (31.0-37.0); MCV 103.6 fL (80.0-100.0); MEAN PLATELET VOLUME 9.3 fL (7.4-10.4); MONOCYTES 12.8 % (2-11); NEUTROPHILS 42.9 % (40-80); PLATELET COUNT 346 10x3/uL (130-400); RBC 3.63 10x6/uL (4.00-5.40); RDW 13.9 % (11.5-14.5); WBC 6.9 10x3/uL (4.8-10.8)
[2019-06-22 15:22] LABS: CALC OSMOLALITY 277 mosm/kg (275-300); CALCIUM 9.8 mg/dL (8.5-10.1); CHLORIDE - SERUM 96 mmol/L (98-107); CREATININE - SERUM 3.7 mg/dL (0.6-1.3); GLUCOSE 123 mg/dL (74-106); INR 0.81 (0.85-1.17); PROTIME 11.2 SECONDS (11.6-15.0); SODIUM 138 mmol/L (136-145); UREA NITROGEN 15 mg/dL (7-18); eGFR NON AFRICAN AMERICAN 12 mL/min (90-120)
[2019-06-22 15:42] LABS: ALKALINE PHOSPHATASE 69 U/L (30-120); ALT (SGPT) 10 U/L (10-68); BILIRUBIN - TOTAL 1.04 mg/dL (0.2-1.3); CREATINE KINASE 57 UL (21-215); PRO BNP 4222 pg/mL (0-450); PROTEIN - SERUM 7.7 g/dL (6.4-8.2); TROPONIN-I 0.033 ng/mL (0.000-0.060)
[2019-06-22 20:38] VITALS: BP 183/85
== END 2019-06-22 20:38 | disposition home or self-care (01) ==
LOC: D.ER 14:46
PROVIDERS: Family Medicine
DX: F41.9 Anxiety disorder, unspecified (principal); R06.02 Shortness of breath; I12.9 Hypertensive chronic kidney disease with stage 1 through stage 4 chronic kidney disease, or unspecified chronic kidney disease; N18.9 Chronic kidney disease, unspecified; Z99.2 Dependence on renal dialysis; K21.9 Gastro-esophageal reflux disease without esophagitis; I25.2 Old myocardial infarction; E03.9 Hypothyroidism, unspecified

== ENCOUNTER 2019-09-05 10:10 | Inpatient (IN) | payer MEDICARE ==
[~2019-09-05] VITALS: Ht 166.4 cm; Wt 56.8 kg
[2019-09-05 10:15] VITALS: Ht 166.4 cm; Wt 56.8 kg
[2019-09-05] MEDS ORDERED: REQUIP0.25 MG PO (10:19)
[2019-09-05] MEDS ORDERED: CELEXA10 MG PO (10:20)
[2019-09-05] MEDS ORDERED: LOPRESSOR25 MG PO (10:21)
[2019-09-05] MEDS ORDERED: RENA-VITE TABL0.8 MG PO (10:22)
[2019-09-05] MEDS ORDERED: NORVASC5 MG PO (10:24)
[2019-09-05] MEDS ORDERED: CARBIDOPA-LEVO1 EAC4 PO (10:27)
[2019-09-05] MEDS ORDERED: [UNRECOGNIZED DRUG - OTHER] (10:28)
[2019-09-05 10:46] VITALS: BP 183/76
--- NOTE | 2019-09-05 11:11 | NUR ---
STRAIGHT CATH URINE COLLECTED ET TO LAB.
[2019-09-05 11:12] LABS: BASOPHILS 0.2 % (0-2); EOSINOPHILS 0.4 % (0-7); HEMATOCRIT 30.9 % (36.0-48.0); HEMOGLOBIN 9.9 g/dL (12-16); IMMATURE GRANULOCYTES 0.1 % (0-5); LYMPHOCYTES 8.2 % (15-50); MCH 34.4 pg (26.0-34.0); MCV 107.3 fL (80.0-100.0); MEAN PLATELET VOLUME 10.1 fL (7.4-10.4); MONOCYTES 16.6 % (2-11); NEUTROPHILS 74.5 % (40-80); PLATELET COUNT 280 10x3/uL (130-400); RBC 2.88 10x6/uL (4.00-5.40); RDW 12.4 % (11.5-14.5); WBC 10.2 10x3/uL (4.8-10.8)
[2019-09-05 11:14] LABS: BILIRUBIN NEGATIVE (NEGATIVE); GLUCOSE 50 mg/dL (NEGATIVE); KETONE NEGATIVE (NEGATIVE); NITRITE NEGATIVE (NEGATIVE); UROBILINOGEN NORMAL (NORMAL)
[2019-09-05 11:15] LABS: EPITHELIAL CELLS 0-5 /hpf (0-5); RED CELLS - URINE 0-5 /hpf (0-5); WHITE CELLS - URINE OCC /hpf (NEGATIVE)
[2019-09-05 11:16] LABS: CALC OSMOLALITY 288 mosm/kg (275-300); CALCIUM 9.7 mg/dL (8.5-10.1); CARBON DIOXIDE 27.1 mmol/L (21.0-32.0); CHLORIDE - SERUM 99 mmol/L (98-107); CREATININE - SERUM 6.9 mg/dL (0.6-1.3); GLUCOSE 133 mg/dL (74-106); POTASSIUM - SERUM 4.9 mmol/L (3.5-5.1); SODIUM 136 mmol/L (136-145); UREA NITROGEN 54 mg/dL (7-18); eGFR NON AFRICAN AMERICAN 6 mL/min (90-120)
[2019-09-05 11:16] LABS: BACTERIA FEW /hpf (NEGATIVE)
[2019-09-05 11:22] LABS: INR 0.94 (0.85-1.17); PROTIME 12.5 SECONDS (11.6-15.0)
[2019-09-05 11:23] LABS: APTT 30.2 SECONDS (22.8-39.4)
[2019-09-05 11:30] VITALS: BP 181/65
[2019-09-05 11:33] LABS: ALBUMIN 3.2 g/dL (3.4-5.0); ALKALINE PHOSPHATASE 83 U/L (30-120); ALT (SGPT) 6 U/L (10-68); BILIRUBIN - TOTAL 0.53 mg/dL (0.2-1.3); CKMB 0.8 U/L (0.0-3.6); CREATINE KINASE 82 UL (21-215); MAGNESIUM - SERUM 1.8 mg/dL (1.8-2.4); PRO BNP 12676 pg/mL (0-450); PROTEIN - SERUM 7.2 g/dL (6.4-8.2); TROPONIN-I 0.018 ng/mL (0.000-0.060)
[2019-09-05 12:15] VITALS: BP 166/65
[2019-09-05 13:12] VITALS: BP 161/66
[2019-09-05 14:00] VITALS: BP 166/66
--- NOTE | 2019-09-05 14:00 | NUR ---
PT TO DIALYSIS AND THEN TO THE ROOM.
[2019-09-05 16:45] LABS: CKMB 1.7 U/L (0.0-3.6); CREATINE KINASE 70 UL (21-215); TROPONIN-I 0.031 ng/mL (0.000-0.060)
== END 2019-09-05 18:06 | disposition home or self-care (01) | DRG 314 ==
LOC: D.ER 10:10 → D.M2 13:23
PROVIDERS: Family Medicine; ADMIT Emergency Medicine; ATTEND Emergency Medicine
PROC: 5A1D70Z Performance of Urinary Filtration, Intermittent, Less than 6 Hours Per Day (ICD-10-PCS; principal; 2019-09-05)
DX: T82.848A Pain due to vascular prosthetic devices, implants and grafts, initial encounter (principal); N18.6 End stage renal disease; I12.0 Hypertensive chronic kidney disease with stage 5 chronic kidney disease or end stage renal disease; T82.590A Other mechanical complication of surgically created arteriovenous fistula, initial encounter; Y84.9 Medical procedure, unspecified as the cause of abnormal reaction of the patient, or of later complication, without mention of misadventure at the time of the procedure; R07.9 Chest pain, unspecified; I25.10 Atherosclerotic heart disease of native coronary artery without angina pectoris; D63.1 Anemia in chronic kidney disease; Z99.2 Dependence on renal dialysis

== ENCOUNTER 2019-09-17 21:09 | Emergency (ER) | payer MEDICARE ==
[~2019-09-17] VITALS: Ht 166.4 cm; Wt 55.9 kg
[~2019-09-17 21:09] MED LIST changes: +CARBIDOPA-LEVO1 EAC4 PO; +[UNRECOGNIZED DRUG - OTHER]
[2019-09-17 21:30] VITALS: Ht 166.4 cm; Wt 55.9 kg
[2019-09-18 00:50] LABS: BASOPHILS 0.2 % (0-2); EOSINOPHILS 4.4 % (0-7); HEMATOCRIT 27.7 % (36.0-48.0); HEMOGLOBIN 8.8 g/dL (12-16); IMMATURE GRANULOCYTES 0.2 % (0-5); LYMPHOCYTES 12.6 % (15-50); MCH 33.6 pg (26.0-34.0); MCHC 31.8 g/dL (31.0-37.0); MCV 105.7 fL (80.0-100.0); MEAN PLATELET VOLUME 8.9 fL (7.4-10.4); MONOCYTES 18.2 % (2-11); NEUTROPHILS 64.4 % (40-80); PLATELET COUNT 258 10x3/uL (130-400); RBC 2.62 10x6/uL (4.00-5.40); WBC 8.2 10x3/uL (4.8-10.8)
[2019-09-18 00:58] LABS: ANION GAP 9.9 mmol/L (8-16); CALCIUM 8.6 mg/dL (8.5-10.1); CARBON DIOXIDE 31.3 mmol/L (21.0-32.0); CREATININE - SERUM 4.3 mg/dL (0.6-1.3); POTASSIUM - SERUM 4.2 mmol/L (3.5-5.1)
[2019-09-18 01:14] LABS: ALBUMIN 2.8 g/dL (3.4-5.0); BILIRUBIN - TOTAL 0.64 mg/dL (0.2-1.3); PROTEIN - SERUM 6.7 g/dL (6.4-8.2); THYROID STIMULATING HORMONE 2.42 uIU/mL (0.36-3.74)
[2019-09-18] MEDS ORDERED: ZOFRAN ODT4 MG/UDTAB PO (03:02)
[2019-09-18 03:07] VITALS: BP 156/71
== END 2019-09-18 03:07 | disposition home or self-care (01) ==
LOC: D.ER 21:09
PROVIDERS: Family Medicine
DX: R53.81 Other malaise (principal); D64.9 Anemia, unspecified; I12.0 Hypertensive chronic kidney disease with stage 5 chronic kidney disease or end stage renal disease; N18.6 End stage renal disease; Z99.2 Dependence on renal dialysis; K21.9 Gastro-esophageal reflux disease without esophagitis

== ENCOUNTER 2019-11-05 12:45 | Inpatient (IN) | payer MEDICARE ==
[~2019-11-05] VITALS: Ht 166.4 cm; Wt 55.3 kg
[~2019-11-05 12:45] MED LIST changes: +ZOFRAN ODT4 MG/UDTAB PO
[2019-11-05 16:32] LABS: BASOPHILS 0.3 % (0-2); EOSINOPHILS 2.4 % (0-7); HEMATOCRIT 30.9 % (36.0-48.0); IMMATURE GRANULOCYTES 0.3 % (0-5); LYMPHOCYTES 11.4 % (15-50); MCH 32.6 pg (26.0-34.0); MCHC 32.4 g/dL (31.0-37.0); MCV 100.7 fL (80.0-100.0); MEAN PLATELET VOLUME 9.4 fL (7.4-10.4); MONOCYTES 14.3 % (2-11); NEUTROPHILS 71.3 % (40-80); RBC 3.07 10x6/uL (4.00-5.40); RDW 15.7 % (11.5-14.5); WBC 11.4 10x3/uL (4.8-10.8)
[2019-11-05 16:34] LABS: PLATELET COUNT 360 10x3/uL (130-400)
[2019-11-05 16:50] LABS: INR 0.99 (0.85-1.17); PROTIME 13.1 SECONDS (11.6-15.0)
[2019-11-05 16:51] LABS: APTT 43.7 SECONDS (22.8-39.4)
[2019-11-05 17:08] LABS: CALC OSMOLALITY 285 mosm/kg (275-300); CALCIUM 9.2 mg/dL (8.5-10.1); CARBON DIOXIDE 23.9 mmol/L (21.0-32.0); CHLORIDE - SERUM 98 mmol/L (98-107); CREATININE - SERUM 7.7 mg/dL (0.6-1.3); GLUCOSE 101 mg/dL (74-106); POTASSIUM - SERUM 5.5 mmol/L (3.5-5.1); SODIUM 132 mmol/L (136-145); UREA NITROGEN 71 mg/dL (7-18); eGFR NON AFRICAN AMERICAN 5 mL/min (90-120)
[2019-11-05 17:16] LABS: ALBUMIN 2.6 g/dL (3.4-5.0); ALKALINE PHOSPHATASE 104 U/L (30-120); ALT (SGPT) 21 U/L (10-68); BILIRUBIN - TOTAL 0.55 mg/dL (0.2-1.3); PROTEIN - SERUM 6.7 g/dL (6.4-8.2)
[2019-11-05 17:24] LABS: BILIRUBIN NEGATIVE (NEGATIVE); KETONE NEGATIVE (NEGATIVE); NITRITE NEGATIVE (NEGATIVE); UROBILINOGEN NORMAL mg/dL (< 2)
[2019-11-05 17:28] LABS: TROPONIN-I < 0.017 ng/mL (0.000-0.060)
--- NOTE | 2019-11-05 18:55 | NUR ---
PT REFUSED COVID SCREENING FOR ADMISSION, PROVIDER NOTIFIED AND ORDER FOR ISOLATION PLACED, PT WAS ADVISED THAT SHE WOULD BE IN ISOLATION AND COULD NOT HAVE ANY VISITORS
--- NOTE | 2019-11-05 19:46 | NUR ---
PT REPORT GIVEN TO DARELL KAPOOR
[2019-11-05 20:45] VITALS: BP 159/91
[2019-11-06 00:23] VITALS: BP 138/87
[2019-11-06 03:06] VITALS: BP 164/63
--- NOTE | 2019-11-06 05:24 | NUR ---
NS @ 30ML/HR STARTED 1923 FINISHED 29. 150ML INFUSED.
[2019-11-06 06:29] VITALS: BP 169/71
--- NOTE | 2019-11-06 07:15 | NUR ---
RECEIVED BEDSIDE REPORT. PT CONFUSED, DISORIENTATED TO PLACE, TIME AND SITUATION. PIV IN RIGHT AC, PATENT AND INFUSING, NO REDNESS OR SWELLING. O2 SAT 95% VIA NC 2L. TELEMETRY IN PLACE, 75 SR. RESERVE LEFT ARM, FISTULA FOR DIALYSIS. PT REFUSED SCDS. EDUCATED PT ON CL AND NEEDS, VERBALIZED UNDERSTANDING. CL IN REACH, WILL CONTINUE TO MONITOR.
--- NOTE | 2019-11-06 08:24 | NUR ---
ON FLOOR AT 0530 ALERT WITH SOME CONFUSION NOTED. IV TO RIGHT AC RESERVE LEFT ARM. FISTULA IN PLACE WITH BRUT AND THRILL NOTED. DIALYSIS ON PER PATIENT. SCD'S IN PLACE. NPO PER ORDERS. FELL AT HOME PRESENTS WITH MULTABLE BRUSES TO ARMS, LEGS ABD, AND SIDE/BACK. REFUSED LABS THIS AM. CALL LIGHT IN REACH. BEDALARM IN PLACE AND WORKING.
[2019-11-06 08:51] VITALS: BP 179/78
[2019-11-06 12:09] VITALS: BP 183/72
--- NOTE | 2019-11-06 13:52 | NUR ---
PT HAS BRUISES ALL OVER RIGHT SIDE OF FACE, BILAT ARMS, BILAT KNEES. PT STATES THAT SHE FELL TWO TIMES AND FRACTURED HER WHOLE BODY. PROVIDED MEDS PER ORDER. BED LOW, ALARM ON, CL IN REACH, WILL CONTINUE TO MONITOR.
--- NOTE | 2019-11-06 14:00 | NUR ---
PT REFUSES LAB DRAW, SHE STATES SHE HAS HAD ENOUGH AND SHE DOESNT WANT ANYONE TOUCHING HER ANYMORE. EDUCATED PT ON THE IMPORTANCE OF OBTAINING LAB DRAW, SHE STATES SHE DOES NOT GIVE A SH. BED LOW, ALARM ON, RAILS X2. CL IN REACH, WILL CONTINUE TO MONITOR.
[2019-11-06 14:59] VITALS: Ht 166.4 cm; Wt 55.3 kg
[2019-11-06 15:30] LABS: BASOPHILS 0.2 % (0-2); EOSINOPHILS 4.5 % (0-7); HEMATOCRIT 26.8 % (36.0-48.0); HEMOGLOBIN 8.6 g/dL (12-16); IMMATURE GRANULOCYTES 0.3 % (0-5); LYMPHOCYTES 12.6 % (15-50); MCH 32.3 pg (26.0-34.0); MCHC 32.1 g/dL (31.0-37.0); MCV 100.8 fL (80.0-100.0); MEAN PLATELET VOLUME 9.2 fL (7.4-10.4); MONOCYTES 15.5 % (2-11); NEUTROPHILS 66.9 % (40-80); PLATELET COUNT 361 10x3/uL (130-400); RBC 2.66 10x6/uL (4.00-5.40); RDW 15.5 % (11.5-14.5); WBC 10.3 10x3/uL (4.8-10.8)
[2019-11-06 16:13] LABS: % SATURATION 12 % (15-55); IRON 14 ug/dl (35-150); TOTAL IRON BIND CAPACITY 110 ug/dl (260-445); UNSAT IRON BIND CAPACITY 96 ug/dl (150-375)
[2019-11-06 16:56] LABS: ALBUMIN 2.2 g/dL (3.4-5.0); ALKALINE PHOSPHATASE 85 U/L (30-120); ALT (SGPT) 19 U/L (10-68); AMYLASE - SERUM 145 U/L (25-115); BILIRUBIN - TOTAL 0.53 mg/dL (0.2-1.3); CALC OSMOLALITY 285 mosm/kg (275-300); CALCIUM 8.9 mg/dL (8.5-10.1); CARBON DIOXIDE 23.9 mmol/L (21.0-32.0); CHLORIDE - SERUM 100 mmol/L (98-107); CKMB 1.1 U/L (0.0-3.6); CREATINE KINASE 40 UL (21-215); CREATININE - SERUM 7.6 mg/dL (0.6-1.3); GLUCOSE 98 mg/dL (74-106); LDH 286 U/L (81-234); LIPASE 562 U/L (73-393); MAGNESIUM - SERUM 2.1 mg/dL (1.8-2.4); PHOSPHOROUS 4.2 mg/dL (2.5-4.9); POTASSIUM - SERUM 5.7 mmol/L (3.5-5.1); PROTEIN - SERUM 5.9 g/dL (6.4-8.2); SODIUM 131 mmol/L (136-145); THYROID STIMULATING HORMONE 3.44 uIU/mL (0.36-3.74); UREA NITROGEN 78 mg/dL (7-18); eGFR NON AFRICAN AMERICAN 5 mL/min (90-120)
[2019-11-06 16:57] LABS: FERRITIN 2052 ng/mL (3-244); PRO BNP 50979 pg/mL (0-450); TROPONIN-I < 0.017 ng/mL (0.000-0.060)
[2019-11-06 18:45] LABS: APTT 51.9 SECONDS (22.8-39.4); INR 1.06 (0.85-1.17); PROTIME 13.8 SECONDS (11.6-15.0)
[2019-11-06 18:48] LABS: D-DIMER-QUANTITATIVE 6.93 ug/mLFEU (0.20-0.54)
[2019-11-06 20:00] VITALS: BP 171/79
--- NOTE | 2019-11-06 20:00 | NUR ---
PT PULLED IV OUT. REFUSES TO HAVE IT RESITED AND REFUSES TO HAVE LAB DRAWN. CALLED RUFINO BARCENAS APN AND UPDATED.
[2019-11-06 20:19] LABS: CKMB 1.1 U/L (0.0-3.6); CREATINE KINASE 41 UL (21-215)
[2019-11-06 20:23] LABS: TROPONIN-I 0.016 ng/mL (0.000-0.060)
[2019-11-07 04:00] VITALS: BP 159/60
--- NOTE | 2019-11-07 04:00 | NUR ---
PT VERY COOPERATIVE AND PLEASANT AT THIS TIME. ALLOWED LAB TO DRAW BLOOD. ASKED PT IF I COULD SITE IV, PT STATES NO. STATES SHE DOES NOT WANY ANYTHING TO STAY IN HER ARM. TALKED WITH PT FOR SEVERAL MINUTES ON WHY HAVING AN IV IS IMPORTANT, PT STILL WOULD NOT AGREE TO IT.
[2019-11-07 06:05] LABS: BASOPHILS 0.3 % (0-2); HEMATOCRIT 28.3 % (36.0-48.0); IMMATURE GRANULOCYTES 0.2 % (0-5); LYMPHOCYTES 11.4 % (15-50); MCH 32.1 pg (26.0-34.0); MCHC 31.8 g/dL (31.0-37.0); MCV 101.1 fL (80.0-100.0); MEAN PLATELET VOLUME 9.6 fL (7.4-10.4); MONOCYTES 15.6 % (2-11); NEUTROPHILS 70.5 % (40-80); PLATELET COUNT 394 10x3/uL (130-400); RDW 15.2 % (11.5-14.5); WBC 9.6 10x3/uL (4.8-10.8)
[2019-11-07 06:31] LABS: ANION GAP 15.1 mmol/L (8-16); MAGNESIUM - SERUM 2.1 mg/dL (1.8-2.4); POTASSIUM - SERUM 5.1 mmol/L (3.5-5.1)
[2019-11-07 06:46] LABS: CREATININE - SERUM 5.4 mg/dL (0.6-1.3)
--- NOTE | 2019-11-07 07:15 | NUR ---
RECEIVED BEDSIDE REPORT. PT LAYING DOWN, EYES CLOSED EVEN RESPIRATIONS. TELEMETRY IN PLACE, 74 SR. LEFT ARM RESERVE, FISTULA FOR DIALYSIS. BRUISES ON FACE, BILAT ARMS, BILAT LEGS, KNEES. BED LOW, RAILS X2. BED ALARM ON, CL IN REACH. WILL CONTINUE TO MONITOR.
[2019-11-07 07:58] VITALS: BP 113/46; BP 167/68
--- NOTE | 2019-11-07 08:30 | NUR ---
PT STATES "I KNOW YOU GUYS ARE TRYING TO STARVE ME TO AND I AM GONNA WALK OUT OF HERE." PT BELIEVES THAT SHE HAS BEEN HERE FOR A WEEK WITH NO FOOD. EDUCATED PT THAT DR DOESNT WANT HER TO HAVE ANYTHING RIGHT NOW DUE TO PANCREATITIS, PT NEEDS FURTHER EDUCATION. CONSULTED WITH DAGOBERTO JOHNSON, CHANGED NPO STATUS TO CLEAR LIQUID, PROVIDED PT WITH LIQUIDS AND HER BEHAVIOR CHANGED RAPIDLY, SHE IS NOW HAPPY AND COMPLIANT. CONSULTED WITH JO-ANN HO AND SABRINA JOHNSON, CHANGED PT MEDS TO PO AND PT WILL GO TO DIALYSIS TODAY, LABS CAN BE DRAWN DURING DIALYSIS. BED LOW, ALARM ON, CL IN REACH. WILL CONTINUE TO MONITOR.
[2019-11-07 11:38] VITALS: BP 158/67
--- NOTE | 2019-11-07 12:45 | NUR ---
PT EATING CLR LIQ LUNCH, PT NEIGHBOR IN ROOM, STATES THAT SHE APPEARS MUCH BETTER THEN YESTERDAY. BED LOW, RAILS X2, ALARM ON, WILL CONTINUE TO MONITOR.
--- NOTE | 2019-11-07 15:00 | NUR ---
PT ESCORTED TO DIALYSIS VIA BED. CONTACTED LAB TO OBTAIN BLOOD SAMPLE WHILE IN DIALYSIS.
--- NOTE | 2019-11-07 16:30 | NUR ---
PT ESCORTED FROM DIALYSIS TO ROOM VIA BED, PT STATES THAT THEY DID NOT PERFORM DIALYSIS CORRECTLY AND SHE NO LONGER WANTS TO BE HERE, THE COMMUNICATION IS TERRIBLE AND SHE WANTS TO GET DRESSED AND GO HOME.
--- NOTE | 2019-11-07 16:35 | NUR ---
ESCORTED PT FROM DIALYSIS TO ROOM, VIA BED. PT STATES THAT SHE DID NOT RECEIVE DIALYSIS AND THAT SHE WANTS TO GO HOME RIGHT NOW.
--- NOTE | 2019-11-07 16:55 | EC ---
PATIENT:AYDIN BOLIVAR DATE OF SERVICE: 11/05/19 SEX: F MEDICAL RECORD: [id number] DATE OF : [birth year] LOCATION:D.[facility] AGE OF PATIENT: 82 ADMISSION DATE: 11/05/19 REFERRING PHYSICIAN: INTERPRETING PHYSICIAN: ELIN MOHAN MD ECHOCARDIOGRAM REPORT ECHO CHARGES 4 ECHO COMPLETE Date: 11/06/19 CLINICAL DIAGNOSIS: HTN, DYSLIPDEMIA, EDEMA ECHOCARDIOGRAPHIC MEASUREMENTS (adult normal given) AC root (d.<3.7cm) 2.8 cm LV Septum d (<1.2 cm> 0.9 cm Valve Excursion 1.3 cm LV Septum (systole) 1.3 cm Left Atria (s.<4.0cm> 3.9 cm LVPW d(<1.2cm) 1.0 cm RV (d.<2.3cm) 3.0 cm LVPW (sytole) 1.3 cm LV diastole(<5.6CM) 4.2 cm MV E-F(>70mm/sec) cm LV systole 2.7 cm LVOT Diameter 1.3 cm MV exc.(>10mm) 0.9 cm Est.ejection fraction (50-75%) % DOPPLER: LVIT cm/sec A 156 cm/sec E 164 cm/sec LA cm/sec RVSP 62 mmHg LVOT 123 cm/sec AOP1/2T m/s Asc. Ao 207 cm/sec RVOT 51 cm/sec RA cm/sec PA 93 cm/sec AV Gradient Peak 17.2 mmHg AV Mean 10.4 mmHg AV Area 0.8 cm MV Gradient Peak 19.3 mmHg MV Mean 7.8 mmHg MV Area cm COMMENTS: Want Ad Supervisor: Viraj PEÑA Access Analyst: 3 Dr. Rosario TAPE# PACS Pericardial Effusion N DATE OF SERVICE: Adequate 2D, color-flow imaging, spectral Doppler, and M-Mode No LVH. LV internal dimensions are normal. Wall motion is normal. EF is greater than or equal to 55%. Aortic valve is sclerotic. No significant stenosis to Doppler interrogation. Left atrium is normal at 3.9 cm. Mitral valve shows no prolapse. Trace MR. Right-sided chambers appear grossly normal. Moderate TR. RV systolic pressure is estimated greater than or equal to 62 mmHg via continuity equation. ECHOCARDIOGRAM REPORT [id number] AYDIN BOLIVAR TRANSINT:[id number] Voice Confirmation ID: [id number] DOCUMENT ID: [id number] ELIN MOHAN MD at 1655 CC: [id number] DICTATION DATE: 11/07/19 0838 RUG DYER: 11/07/19 1242 ADM IN [facility] [address] [place] [id number]
--- NOTE | 2019-11-07 17:35 | NUR ---
PT SITTING ON BED GETTING DRESSED, STATES SHE IS LEAVING, CALLED NURSE OFFICE MANAGER RECEPTIONIST INTO ROOM.
--- NOTE | 2019-11-07 17:35 | NUR ---
PT SITTING ON BED, GETTING DRESSED, STATES THAT THE COMMUNICATION HERE IS AWFUL AND THAT SHE IS GOING TO WALK OUT OF HERE RIGHT NOW, CALLED NURSE PRESS TENDER SHORT GOODS TO ROOM.
--- NOTE | 2019-11-07 17:44 | NUR ---
PT DEMANDING TO GO HOME. WILL NOT STAY. WILL NOT REPLACE MONITOR. PT IS ALERT AND ORIENTED. RUFINO BARCENAS APN PAGED.
[2019-11-07 17:46] LABS: BASOPHILS 0.2 % (0-2); EOSINOPHILS 2.4 % (0-7); HEMOGLOBIN 8.7 g/dL (12-16); IMMATURE GRANULOCYTES 0.2 % (0-5); LYMPHOCYTES 14.6 % (15-50); MCH 32.2 pg (26.0-34.0); MCHC 32.2 g/dL (31.0-37.0); MEAN PLATELET VOLUME 9.5 fL (7.4-10.4); MONOCYTES 16.9 % (2-11); NEUTROPHILS 65.7 % (40-80); PLATELET COUNT 376 10x3/uL (130-400); RDW 15.2 % (11.5-14.5); WBC 8.2 10x3/uL (4.8-10.8)
--- NOTE | 2019-11-07 18:00 | NUR ---
RUFINO JOHNSON CONTACTED, TOLD TO CONTACT MD ELECTRICAL TRYOUT PERSON. ATTEMPTED TO CONTACT MD ELECTRICAL TRYOUT PERSON.
[2019-11-07 18:20] LABS: AMYLASE - SERUM 131 U/L (25-115); LIPASE 432 U/L (73-393)
--- NOTE | 2019-11-07 19:00 | NUR ---
PT SITTING UP ON SIDE OF BED. NEIGHBOR IN ROOM. STATES SHE HAS NO PROBLEM WITH NURSING STAFF BUT THAT THE DOCTORS ARE NOT TELLING HER THE TRUTH. STATES SHE WILL STAY UNTIL AM TO SPEAK WITH DOCTOR AND "GIVE THEM ONE MORE CHANCE" PT OTHERWISE IS PLEASANT AND COOPERATIVE. DENIES NEEDS AT THIS TIME. CL IN REACH, WILL CTM
[2019-11-07 20:00] VITALS: BP 139/71
--- NOTE | 2019-11-07 21:00 | NUR ---
PT LYING IN BED WATCHING MOVIES ON HER LAPTOP, DENIES PAIN OR NEEDS. TOOK MEDS WITHOUT DIFFICULTY. CL IN [facility], WILL CTM
[2019-11-08 04:00] VITALS: BP 176/66
[2019-11-08 06:25] LABS: BASOPHILS 0.3 % (0-2); EOSINOPHILS 3.3 % (0-7); HEMATOCRIT 26.4 % (36.0-48.0); HEMOGLOBIN 8.3 g/dL (12-16); IMMATURE GRANULOCYTES 0.3 % (0-5); MCHC 31.4 g/dL (31.0-37.0); MCV 101.9 fL (80.0-100.0); MEAN PLATELET VOLUME 9.4 fL (7.4-10.4); MONOCYTES 17.1 % (2-11); PLATELET COUNT 404 10x3/uL (130-400); RBC 2.59 10x6/uL (4.00-5.40); RDW 15.2 % (11.5-14.5)
[2019-11-08 06:50] LABS: ANION GAP 12.2 mmol/L (8-16); CALCIUM 8.7 mg/dL (8.5-10.1); CARBON DIOXIDE 29.8 mmol/L (21.0-32.0); CREATININE - SERUM 4.8 mg/dL (0.6-1.3); MAGNESIUM - SERUM 1.9 mg/dL (1.8-2.4); PHOSPHOROUS 3.1 mg/dL (2.5-4.9)
[2019-11-08 08:07] VITALS: BP 186/77
--- NOTE | 2019-11-08 11:28 | NUR ---
PT IS LEAVING AMA. PT IS AAO X 4 AND ANSWERS ALL QUESTIONS APPROPRIATELY. PT INFORMED OF AMA RISKS. PT STATES "I DON'T WANT TO HEAR ANYTHING ELSE. I AM NOT LETTING THIS HOSPITAL USE MY FISTULA FOR DIALYSIS. I AM GOING TO [facility] AND I AM NOT STAYING HERE ANY LONGER. I UNDERSTAND THE WAY THIS WORKS". AMA PAPER SIGNED BY PT. BENOIT DALTON APRN PAGED TO NOTIFY. PT AMBULATES OFF FLOOR WITHOUT DIFFICULTY WITH ASSISTANCE FROM "FRIEND". BENOIT DALTON APRN NOTIFIED OF PT LEAVING AMA. SIGNED AMA PAPER PLACED IN PT CHART.
[2019-11-08 12:04] VITALS: BP 175/69
--- NOTE | 2019-11-08 13:37 | NUR ---
PT IS RESTING IN BED WITH EYES OPEN. RESPIRATIONS ARE EVEN AND UNLABORED. PT IS AAO X 4 AND ANSWERS ALL QUESTIONS APPROPRIATELY. RESERVE LEFT ARM SIGN PLACED ABOVE PT BED. FISTULA NOTED TO LUE. BRUIT/THRILL PRESENT. PT REFUSES SCDS. INCENTIVE SPIROMETER AT BEDSIDE. PT ENCOURAGED TO USE INCENTIVE SPIROMETER AND EDUCATED ON USE AND IMPORTANCE. PT VERBALIZES UNDERSTANDING. GENERALIZED BRUISING NOTED TO BODY AND BRUISING NOTED TO FACE. PT DENIES PRESENCE OF PAIN/N/V/DYSPNES AND PT DENIES PRESENCE OF NUMBNESS/TINGLING TO BUE AND BLE. FALL PRECAUTIONS IN PLACE. BED IS IN THE LOWEST POSITION. CALL LIGHT AND BEDSIDE TABLE ARE WITHIN REACH. SIDE RAILS X 2. PT DENIES FURTHER NEEDS. WILL CONT TO MONITOR.
== END 2019-11-08 12:01 | disposition left against medical advice (07) | DRG 438 ==
LOC: D.ER 12:45 → D.EDHOLD 20:24 → D.MS 20:24
PROVIDERS: Emergency Medicine; Family Medicine; ADMIT Family Medicine Adult Medicine; ATTEND Family Medicine Adult Medicine
DX: K85.90 Acute pancreatitis without necrosis or infection, unspecified (principal); G93.41 Metabolic encephalopathy; N18.6 End stage renal disease; S22.43XA Multiple fractures of ribs, bilateral, initial encounter for closed fracture; I12.0 Hypertensive chronic kidney disease with stage 5 chronic kidney disease or end stage renal disease; D53.9 Nutritional anemia, unspecified; I25.10 Atherosclerotic heart disease of native coronary artery without angina pectoris; E03.9 Hypothyroidism, unspecified; K21.9 Gastro-esophageal reflux disease without esophagitis; F41.9 Anxiety disorder, unspecified; W19.XXXA Unspecified fall, initial encounter; E78.5 Hyperlipidemia, unspecified

== ENCOUNTER 2020-04-12 08:23 | Inpatient (IN) | payer MEDICARE ==
[~2020-04-12] VITALS: Ht 166.4 cm; Wt 59.1 kg
[2020-04-12 08:30] VITALS: Ht 166.4 cm; Wt 59.1 kg
[2020-04-12 08:38] VITALS: BP 190/92
[2020-04-12 08:40] LABS: BASOPHILS 0.2 % (0-2); EOSINOPHILS 1.8 % (0-7); HEMATOCRIT 30.1 % (36.0-48.0); HEMOGLOBIN 9.5 g/dL (12-16); IMMATURE GRANULOCYTES 0.1 % (0-5); LYMPHOCYTE ABS# 1.29 10x3/uL (1.18-3.74); LYMPHOCYTES 13.6 % (15-50); MCH 32.6 pg (26.0-34.0); MCHC 31.6 g/dL (31.0-37.0); MCV 103.4 fL (80.0-100.0); MEAN PLATELET VOLUME 8.6 fL (7.4-10.4); NEUTROPHIL ABS# 6.79 10x3/uL (1.56-6.13); NEUTROPHILS 71.3 % (40-80); RBC 2.91 10x6/uL (4.00-5.40); RDW 16.8 % (11.5-14.5); WBC 9.5 10x3/uL (4.8-10.8)
--- NOTE | 2020-04-12 08:41 | NUR ---
PATIENT STATES THAT SHE NORMALLY USES [facility] [place] BUT RECENTLY SWITCHED TO [facility].
[2020-04-12 08:50] LABS: APTT 28.8 SECONDS (22.8-39.4); INR 1.05 (0.85-1.17); PROTIME 12.7 SECONDS (11.6-15.0)
[2020-04-12 08:51] LABS: CALC OSMOLALITY 282 mosm/kg (275-300); CALCIUM 9.9 mg/dL (8.5-10.1); CARBON DIOXIDE 28.7 mmol/L (21.0-32.0); CHLORIDE - SERUM 96 mmol/L (98-107); GLUCOSE 117 mg/dL (74-106); POTASSIUM - SERUM 5.8 mmol/L (3.5-5.1); SODIUM 134 mmol/L (136-145); UREA NITROGEN 53 mg/dL (7-18); eGFR NON AFRICAN AMERICAN 7 mL/min (90-120)
[2020-04-12 08:52] LABS: PLATELET COUNT 283 10x3/uL (130-400)
[2020-04-12 09:12] LABS: ALBUMIN 3.5 g/dL (3.4-5.0); ALKALINE PHOSPHATASE 152 U/L (30-120); ALT (SGPT) 8 U/L (10-68); BILIRUBIN - TOTAL 0.64 mg/dL (0.2-1.3); CKMB 2.9 U/L (0.0-3.6); CREATINE KINASE 58 UL (21-215); MAGNESIUM - SERUM 1.9 mg/dL (1.8-2.4); PROTEIN - SERUM 7.6 g/dL (6.4-8.2)
[2020-04-12 09:22] LABS: TROPONIN-I 0.081 ng/mL (0.000-0.060)
--- NOTE | 2020-04-12 09:23 | NUR ---
LAB IN ROOM FOR BLOOD CULTURES. PATIENT ASSISTED TO POSITION OF COMFORT. ALERT AND ORIENTED. EDUCATED ON PNEUMONIA AND PURPOSE OF ANTIBIOTICS, AND ANTIHYPERTENSIVE.
--- NOTE | 2020-04-12 09:25 | NUR ---
PATIENT REFUSING COVID SWABS. STATES "I DONT WANT ANY FLU OR COVID SHOTS, AND NONE OF THAT SWAB SHIT. NONE OF THAT AT ALL THEY ARE NOT PULLING THAT ON ME.".
--- NOTE | 2020-04-12 09:35 | NUR ---
[facility], STATES THAT DR POOL WILL ALSO BE ROUNDING SHORTLY. STATUS REPORT GIVEN TO JEFF AT THIS TIME. REPORT ALSO GIVEN TO DIALYSIS NURSE.
--- NOTE | 2020-04-12 09:45 | NUR ---
PATIENT SON BROUGHT MAKE UP BAG AND PURSE, BELONGINGS GIVEN TO PATIENT.
--- NOTE | 2020-04-12 09:50 | NUR ---
REPORT GIVEN TO RECIEVING NURSE ON MED II.
--- NOTE | 2020-04-12 09:52 | NUR ---
PATIENT SON, CYNDY, CELL NUMBER [phone]
--- NOTE | 2020-04-12 10:14 | NUR ---
PT SCREAMING IN HALLS AND BEHIND NURSES STATION. , UNCOOPERATIVE. STATES "ILL BE GODDAMNED IF I GET DIALYSIS HERE". PATIENT INSTRUCTED TO QUIT SCREAMING IN HALLS AND TO RETURN TO HER ROOM SHE CAN NOT BE IN AREAS WHERE PATIENT INFORMATION IS. STATES IM LEAVING THIS IS BULLSHIT. IM NOT GETTING DIALYSIS THE CHILDBIRTH AND INFANT CARE TEACHER SAID IM FINE SO IM LEAVING TAKE ME OUT OF HERE.
--- NOTE | 2020-04-12 10:30 | NUR ---
WAS INFORMED BY ER THAT PT LEFT AMA
--- NOTE | 2020-04-12 14:05 | MORECARE ---
CASE MANAGEMENT DISCHARGE SUMMARY PATIENT: AYDIN BOLIVAR UNIT: [id number] ADM DATE: 04/12/20 AGE: 82 : [birth year] SEX: F ROOM/BED: D.5665 AUTHOR: WALT LANDEROS PHYSICIAN: REFERRING PHYSICIAN: ERICK GERMAN DO DATE OF SERVICE: 04/12/20 Discharge Plan Patient Name: AYDIN BOLIVAR Facility: [facility]:[place] : 07/19/1937 Planned Disposition: Anticipated Discharge Date: Discharge Date: 04/12/2020 Expected LOS: Initial Reviewer: [email or web address] Initial Review Date: 04/12/2020 Generated: 04/12/20 3:04 pm Patient Name: AYDIN BOLIVAR Page [id number] at 1405 All edits/amendments must be made on the electronic document DICTATION DATE: 04/12/20 1404 DISTRICT REPRESENTATIVE: YULI 04/12/20 1404 RPT#: [id number] DC DATE:04/12/20 STATUS: DIS IN [facility] [address] [place] [address] END OF REPORT
== END 2020-04-12 10:30 | disposition home or self-care (01) | DRG 193 ==
LOC: D.ER 08:23 → D.EDHOLD 09:15 → D.M2 09:37
PROVIDERS: Family Medicine; ADMIT Internal Medicine; ATTEND Internal Medicine
PROC: 5A1D70Z Performance of Urinary Filtration, Intermittent, Less than 6 Hours Per Day (ICD-10-PCS; principal; 2020-04-12)
DX: J18.9 Pneumonia, unspecified organism (principal); N18.6 End stage renal disease; I12.0 Hypertensive chronic kidney disease with stage 5 chronic kidney disease or end stage renal disease; Z99.2 Dependence on renal dialysis; I25.10 Atherosclerotic heart disease of native coronary artery without angina pectoris; E87.5 Hyperkalemia; E78.5 Hyperlipidemia, unspecified